=== PATIENT | female | born 1940 | race Caucasian/White ===

== ENCOUNTER 2017-11-09 21:46 | Emergency (ER) | payer MEDICARE, OTHER ==
[~2017-11-09] VITALS: Ht 152.4 cm; Wt 54.0 kg
--- NOTE | 2017-11-09 22:59 | Diagnostic Imaging Report ---
KNEE RIGHT THREE VIEWS Comparison: None Clinical history: Knee pain Findings: Chondrocalcinosis. Mild tricompartmental degenerative changes. Large 1.9 cm right lateral femoral condyle well-circumscribed lucency. No acute fractures seen. Impression: Favor large right lateral femoral condyle osteochondral defect over large subchondral cyst. Signed by: Dr Margaret Melendez MD on 11/09/2017 10:55 PM
[2017-11-09 23:27] VITALS: BP 154/92
== END 2017-11-09 23:28 | disposition home or self-care (01) ==
LOC: ER 21:46
DX: M25.561 Pain in right knee (principal); I10 Essential (primary) hypertension
CPT/HCPCS: 99282

== ENCOUNTER 2018-09-14 13:56 | Outpatient (RCR) | payer MEDICARE, OTHER | END 2018-09-15 | LOC: PT 13:56 | PROVIDERS: ATTEND Specialist | DX: M75.102 Unspecified rotator cuff tear or rupture of left shoulder, not specified as traumatic (principal); M75.101 Unspecified rotator cuff tear or rupture of right shoulder, not specified as traumatic; M25.512 Pain in left shoulder; M25.511 Pain in right shoulder; M62.81 Muscle weakness (generalized) | CPT/HCPCS: 97010 ×2; 97110 ×3; 97161; G0283; G8984; G8985 ==

== ENCOUNTER 2018-10-12 13:00 | Outpatient (RCR) | payer MEDICARE | END 2018-10-15 | LOC: PT 13:00 | PROVIDERS: ATTEND Specialist | DX: M16.11 Unilateral primary osteoarthritis, right hip (principal); M70.61 Trochanteric bursitis, right hip; M25.551 Pain in right hip; M62.81 Muscle weakness (generalized); R26.2 Difficulty in walking, not elsewhere classified | CPT/HCPCS: 97110 ×5; 97139; 97162; G8985; G8986 ==

== ENCOUNTER 2018-11-12 10:00 | Outpatient (RCR) | payer MEDICARE | END 2018-11-15 | LOC: PT 10:00 | PROVIDERS: ATTEND Specialist | DX: M16.11 Unilateral primary osteoarthritis, right hip (principal); M71.551 Other bursitis, not elsewhere classified, right hip | CPT/HCPCS: 97010; 97110 ×11; 97140 ×2; 97530; G8978; G8979 ==

== ENCOUNTER → 2020-03-22 | Outpatient (CLI) | payer MEDICARE ==
--- NOTE | 2020-03-22 14:18 | Diagnostic Imaging Report ---
Left knee MRI without contrast. History: Knee pain. Instability. Meniscus tear. Decreased range of motion Comparison: 11/09/2017. Technique: Multiplanar multi-sequence MRI of the knee without contrast. Findings: Medial compartment: Degeneration and fraying of the medial meniscus. No meniscal tear. Articular cartilage fraying and fissuring in the medial compartment. The medial collateral ligament complex is intact. Lateral compartment: Degeneration and fraying of the lateral meniscus. No meniscal tear. Articular cartilage fraying and deep fissuring most pronounced at the lateral femoral condyle with mild underlying bone marrow edema. The lateral collateral ligament complex is intact. Intercondylar notch: Scarring and attenuation of the anterior cruciate ligament intact fibers are seen. The posterior cruciate ligament is intact. Patellofemoral compartment: Articular cartilage fraying and fissuring in the patellofemoral compartment. Extensor mechanism: The quadriceps and patellar tendons are normal. Other findings: There is a joint effusion and synovitis. There is no acute fracture, subluxation or avascular necrosis. Small Thorne's cyst. IMPRESSION: Scarring and attenuation of the anterior cruciate ligament. Intact fibers are seen. 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 Joint effusion, synovitis and small Thorne's cyst. Signed by: Dr. Derek Bahena M.D. on 03/22/2020 2:15 PM
== END ==
LOC: MRI 10:29
PROVIDERS: ATTEND Specialist
DX: S83.242A Other tear of medial meniscus, current injury, left knee, initial encounter (principal)

== ENCOUNTER 2020-04-16 11:27 | Inpatient (IN) | payer MEDICARE, OTHER ==
[~2020-04-16] VITALS: Ht 152.4 cm; Wt 49.9 kg
--- OUTSIDE RECORDS SUMMARY | 2020-04-16 11:29 | XMS REPORT | Continuity of Care Document ---
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 COMPARISON: none TECHNIQUE: Grayscale and color images of both lobes of thyroid gland were performed with a linear high-frequency transducer. Static images are submitted for review. FINDINGS: There is mild heterogeneity in the echotexture of both lobes of thyroid gland. No discrete mass is visualized in either lobe of the thyroid gland. 4 mm complex lesion with tiny central calcification is noted in the midportion of right lobe of thyroid gland. The right lobe measures 2.6 x 1.0 x 1.2 cm and the left lobe measures 2.7 x 1.2 x 0.9 cm. ISTHMUS: Region of the isthmus is unremarkable. LYMPH NODES: No enlarged lymph nodes are evident adjacent to either lobe of thyroid gland. IMPRESSION: No significant sonographic abnormality is noted. For reference: Society of Radiologists in Ultrasound Consensus Conference Statement (2005): 1. Solitary nodule: --Microcalcifications: Strongly conside r US guided FNA if >= 1 cm. --Solid (or almost entirely solid): Str ongly consider US guided FNA if >= 1.5 cm. --Coarse calcifications: Strongly consi sadie US guided FNA if >= 1.5 cm. --Mixed solid and cystic (or almost enti rely cystic with solid mural component): Consider US guided FNA if >= 2 cm. --Substantial interval growth (in the ab sence of above findings): Consider US guided FNA. --Almost entirely cystic (in the absence of the above findings): US guided FNA probably unnecessary. 2. Multiple nodules: Consider US guide d FNA of 1 or more nodules, with selection prioritized on basis of criteria for solitary nodule. 3. Note: --FNA is likely unnecessary in diffusely enlarged gland with multiple nodules of similar US appearance without intervening parenchyma. --Presence of abnormal lymph nodes overr ides US features of thyroid nodule and should prompt US guided FNA or biopsy of lymph node and/or ipsilateral nodule. SL: [id number] 05/04/2017 [facility] Consultation Notes No Data Provided for This Section Discharge Summaries No Data Provided for This Section History and Physicals No Data Provided for This Section Vital Signs No Data Provided for This Section Encounters Location Location Details Encounter Type Encounter Number Reason For Visit Attending Provider ADM Date DC Date Status Source [facility] [id number] Theodore Aguilaya 05/04/2017 05/05/2017 [facility] Procedures No Data Provided for This Section Assessment and Plan No Data Provided for This Section Plan of Care No Data Provided for This Section Social History Social History Date Source No data available for this section 05/05/2017 [facility] Family History No Data Provided for This Section Advance Directives No Data Provided for This Section Functional Status No Data Provided for This Section
[2020-04-16 12:37] LABS: BASOPHILS % 0.3 % (0.0-1.0); EOSINOPHILS # (AUTO) 0.1 (0.0-0.4); EOSINOPHILS % 0.7 % (0.0-6.0); HEMATOCRIT 39.4 % (34.2-44.1); HEMOGLOBIN 13.2 g/dL (12.0-16.0); LYMPHOCYTES % 8.4 % (18.0-39.1); MEAN CORPUSCULAR HEMOGLOBIN 30.8 pg (28-32); MEAN CORPUSCULAR HGB CONC 33.5 g/dL (31-35); MEAN CORPUSCULAR VOLUME 91.8 fL (81-99); MONOCYTES # (AUTO) 0.6 (0.2-0.8); MONOCYTES % 5.1 % (4.4-11.3); NEUTROPHILS # (AUTO) 10.4 (2.1-6.9); NEUTROPHILS % 84.7 % (38.7-80.0); PLATELET COUNT 320 x10e3/uL (140-360); RED BLOOD COUNT 4.29 x10e6/uL (3.6-5.1); RED CELL DISTRIBUTION WIDTH 12.5 % (11.7-14.4)
[2020-04-16 13:09] LABS: ALANINE AMINOTRANSFERASE 45 IU/L (0-55); ALBUMIN 3.7 g/dL (3.5-5.0); ALKALINE PHOSPHATASE 280 IU/L (40-150); ANION GAP 15.5 mmol/L (8-16); BLOOD UREA NITROGEN 9 mg/dL (7-26); BUN/CREATININE RATIO 13 (6-25); CALCIUM 10.2 mg/dL (8.4-10.2); CARBON DIOXIDE 29 mmol/L (22-29); CHLORIDE 96 mmol/L (98-107); CREATINE KINASE 71 IU/L (29-168); CREATININE, SERUM 0.71 mg/dL (0.57-1.11); EST GLOMERULAR FILTRATION RATE > 60 ML/MIN (60-); GLUCOSE 161 mg/dL (74-118); POTASSIUM 3.5 mmol/L (3.5-5.1); SODIUM 137 mmol/L (136-145)
[2020-04-16] MEDS ORDERED: CARVEDILOL 12.5 MG TAB PO ONE (14:45)
[2020-04-16 15:21] LABS: BILIRUBIN,URINE NEGATIVE (NEGATIVE); CLARITY,URINE SL CLOUDY (CLEAR); COLOR,URINE YELLOW (YELLOW); KETONES,URINE TRACE (NEGATIVE); LEUKOCYTE ESTERASE ,URINE TRACE (NEGATIVE); NITRITE,URINE NEGATIVE (NEGATIVE); PROTEIN,URINE DIPSTICK TRACE (NEGATIVE); URINE UROBILINOGEN 0.2 mg/dL (0.2 - 1)
[2020-04-16 15:39] LABS: EPITHELIAL CELLS,URINE FEW /LPF; RENAL EPITHELIAL CELLS,URINE RARE; TRANSITIONAL EPI CELLS,URINE RARE; WBC,URINE (MAN) 0-5 /HPF (0-5)
--- NOTE | 2020-04-16 15:53 | Diagnostic Imaging Report ---
CT of the abdomen and pelvis, with contrast. History: Abdominal pain. Comparison: None available. Technique: Multidetector CT scanning of the abdomen and pelvis was performed from the level of the lung bases to the inferior pubic rami after intravenous administration of contrast. Coronal and sagittal multiplanar reformations were obtained. RADIATION DOSE: Total DLP: 165.84 mGy*cm Dose modulation, iterative reconstruction, and/or weight based adjustment of the mA/kV was utilized to reduce the radiation dose to as low as reasonably achievable. FINDINGS: The visualized lungs are grossly unremarkable. The imaged portion of the heart demonstrates no significant abnormalities. The liver is normal in size and contains innumerable hypodense masses. A mass within the left hepatic lobe measures 1.6 x 1.8 cm (axial image 26). The stomach, spleen, and bilateral adrenal glands are unremarkable. Although this examination was not performed for detailed evaluation of the pancreas, there is soft tissue fullness noted at the level of the pancreatic head without a discrete mass. The remaining pancreas is atrophic with the pancreatic duct measuring up to 8 mm in caliber. The kidneys are normal in size and location and enhance symmetrically. A subcentimeter hypodensity is identified within the superior pole the right kidney. There is no evidence for solid renal mass or hydronephrosis. No ureteral stone or dilatation is appreciated. The partially distended urinary bladder demonstrates no significant abnormalities. The uterus is surgically absent. No abnormal adnexal masses are identified. The abdominal aorta is normal in course and caliber with atherosclerotic calcifications within its course and branch vessels. The IVC is normal in caliber. Please note evaluation the bowel is limited without the use of enteric contrast material. The visualized loops of small and large bowel demonstrate no evidence of obstruction or inflammation. Scattered diverticula are noted within the sigmoid colon without evidence for acute diverticulitis. There is no ascites or intraperitoneal free air. No abnormally enlarged lymph nodes are identified within the abdomen or pelvis by CT size criteria. There are mild compression deformities involving the T12 and L1 vertebral bodies. There are multilevel degenerative changes of the thoracolumbar spine with mild anterolisthesis of L3 on L4. No destructive osseous lesion is identified. The extraperitoneal soft tissues are unremarkable. IMPRESSION: 1. Multiple hypodense masses identified within the liver concerning for metastatic disease. 2. Although this examination was not performed for detailed evaluation of the pancreas, there is soft tissue fullness noted at the level of the pancreatic head with atrophic changes and ductal dilatation noted within the pancreatic body and tail. An underlying pancreatic lesion is possible. Further evaluation could be performed with ERCP if clinically indicated. 3. Multilevel degenerative changes of the thoracolumbar spine with mild, age indeterminate compression fractures of the T12 and L1 vertebral bodies. Signed by: Dr. Lamonte Whitaker MD on 04/16/2020 3:49 PM
[2020-04-16] MEDS ORDERED: ONDANSETRON HCL INJ 2MG/ML 2ML 2 MG/ML VIAL IV PRN ×2 (16:30→23:00)
--- OUTSIDE RECORDS SUMMARY | 2020-04-16 16:36 | XMS REPORT | Clinical Summary ---
Author Author [facility] [employer] Organization [facility] [employer] Address Unknown Phone Unavailable Care Team Providers Care Airport Ramp Supervisor Name Role Phone Anup Sanchez MD PCP Allergies Not on File Medications Not on file Active Problems Not on file Encounters Care Team Description Date Type Specialty Darwin Poole MD Displaced comminuted fracture of right p atella, initial encounter for closed fracture (Primary Dx) 10/18/2019 Transcribe Physical Therapy Orders Anup Sanchez MD Lump or mass in breast 06/14/2019 Hospital Radiology Encounter nAup Sanchez MD Lump or mass in breast 06/14/2019 Hospital Radiology Encounter Anup Sanchez MD Lump or mass in breast (Primary Dx) 06/02/2019 Transcribe Access Orders after 04/16/2019 Social History Date Tobacco Use Types Packs/Day Years Used Never Assessed Sex Assigned at Date Recorded Not on file Industry Job Start Date Occupation Not on file Not on file Not on file Travel End Travel History Travel Start No recent travel history available. Last Filed Vital Signs Not on file Plan of Treatment Health Maintenance Due Date Last Done Comments SHINGLES VACCINES (#1) 1988 65+ PNEUMOCOCCAL VACCINE 2003 (1 of 2 - PCV13) INFLUENZA VACCINE 06/16/2020 Procedures Comments Procedure Name Priority Date/Time Associated Diag nosis US BREAST COMPLETE Routine 06/14/2019 Lump or mas s in breast BILATERAL 3:07 PM CDT MAMMO BREAST DIAGNOSTIC Routine 06/14/2019 Lump o r mass in breast TOMOSYNTHESIS BILATERAL 2:22 PM CDT after 04/16/2019 Results * US Breast Complete Bilateral (06/14/2019 3:07 PM CDT) Specimen Narrative Performed At PROCEDURE: MAMMO BREAST DIAGNOSTIC TOMOSYNTHESIS BILA TERAL, US BREAST COMPLETE [facility] BILATERAL Bilateral real-time whole breast sonogr aphy included all four quadrants and the retroareolar regions under close superv ision by the radiologist. Computer aided detection with tomosynth esis was utilized for the interpretation. HISTORY: 79-year-old female presentin for additional evaluation for focal left breast pain at the 6:00 location. Although the position order reports a breast nodule, the patient denies a pal pable concern. The patient reports no right breast complaints. COMPARISON: 06/18/2018-10/24/2014 DENSITY: The breast tissue is predomina ntly fatty. FINDINGS: MAMMOGRAM: The asymmetry in the right m edial breast at middle depth identified on CC view completely effaces on right CC spot compression magnification view and does not persist on right CC medial ly or laterally rolled views, most compatible with overlapping breast tissue. Otherwise, n o new significant masses, calcifications, or other findings are seen in either br east. ULTRASOUND: Bilateral whole breast sono graphy demonstrates no suspicious sonographic abnormality. Special attent ion to the area of focal left breast pain at the 6:00 location 4 cm from the nipp le demonstrates no definite sonographic abnormality. IMPRESSION: No mammographic or sonogr aphic evidence of malignancy in either breast. RECOMMENDATION: Correlation with physic al exam and annual mammography as per ACR guidelines. Recommend clinical follow-u p for focal left breast pain. Results and recommendations were discussed with the patient at the time of the ultrasound exam. BI-RADS 1: NEGATIVE This facility is accredited by [employer] for Mammography. A negative x-ray report should not janell y biopsy if a dominant or clinically suspicious mass is present. Not all c ancers are identified by x-ray. [id number] Performing Organization Address City/State/Zipcode Ph one Number [facility] [address] [place] [address] * Mammo Breast Diagnostic Tomosynthesis Bilateral (06/14/2019 2:22 PM CDT) Specimen Narrative Performed At PROCEDURE: MAMMO BREAST DIAGNOSTIC TOMOSYNTHESIS BILA TERAL, US BREAST COMPLETE [facility] BILATERAL Bilateral real-time whole breast sonogr aphy included all four quadrants and the retroareolar regions under close superv ision by the radiologist. Computer aided detection with tomosynth esis was utilized for the interpretation. HISTORY: 79-year-old female presentin g for additional evaluation for focal left breast pain at the 6:00 location. Although the position order reports a breast nodule, the patient denies a pal pable concern. The patient reports no right breast complaints. COMPARISON: 06/18/2018-10/24/2014 DENSITY: The breast tissue is predomina ntly fatty. FINDINGS: MAMMOGRAM: The asymmetry in the right m edial breast at middle depth identified on CC view completely effaces on right CC spot compression magnification view and does not persist on right CC medial ly or laterally rolled views, most compatible with overlapping breast tissue. Otherwise, n o new significant masses, calcifications, or other findings are seen in either br east. ULTRASOUND: Bilateral whole breast sono graphy demonstrates no suspicious sonographic abnormality. Special attent ion to the area of focal left breast pain at the 6:00 location 4 cm from the nipp le demonstrates no definite sonographic abnormality. IMPRESSION: No mammographic or sonogr aphic evidence of malignancy in either breast. RECOMMENDATION: Correlation with physic al exam and annual mammography as per ACR guidelines. Recommend clinical follow-u p for focal left breast pain. Results and recommendations were discussed with the patient at the time of the ultrasound exam. BI-RADS 1: NEGATIVE This facility is accredited by [employer] for Mammography. A negative x-ray report should not janell y biopsy if a dominant or clinically suspicious mass is present. Not all c ancers are identified by x-ray. 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
--- OUTSIDE RECORDS SUMMARY | 2020-04-16 16:36 | XMS REPORT ---
Author Author [facility] Organization [facility] Address [address] [place] [address] Phone Unavailable Care Team Providers Care Inspector Watch Assembly Name Role Phone NONSTAFF PCP Unavailable Alexandrea PATEL Attphys Unavailable Alejo LINARES Attphys Unavailable Alejo Linares MD. Darwin Attphys Anup Sanchez MD Attphys [place] ABDI Attphys Unavailable Theodore Vides Attphys Payers Payer Name Policy Type Policy Number Effective Date Expiration Date S nahid UHC MEDICAREUHC MEDICARE HMO/[id number]-[id number] xxxxxxxxx 2017 00:00:00 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 Active 04/29/2017 [facility] Diagnosis Active 2017-04-29 00:00:00 2017-05-04 10:41:00 [facility] NONTOXIC SINGLE THYROID NODULE NONTOXIC SINGLE THYROID NODULE Active [facility] Diagnosis Active 2017-05-04 10:41 :00 [facility] Allergies, Adverse Reactions, Alerts Allergy Name Allergy Type Status Severity Reaction(s) Onset Date Inacti ve Date Treating Clinician Comments Source Niacin Allergy to Substance Active ITCHING, RASH 2017-11-09 00:00: 00 [facility] Codeine Allergy to Substance Active [facility] 2017-11-09 00: 00:00 [facility] Hydrocodone Allergy to Substance Active [facility] 2017-10 00:00:00 [facility] Social History Social Habit Start Date Stop Date Quantity Comments Source Sex Assigned At Isrrael Medeiros Social History 2017-05-05 04:59:00 2017-05-05 04:59:00 [facility] Medications This patient has no known medications. Procedures Procedure Date / Time Performed Performing Clinician Juan SINHA BREAST COMPLETE BILATERAL 2019-06-14 15:07:19 System, Provide r Not In [facility] MAMMO BREAST DIAGNOSTIC TOMOSYNTHESIS BILATERAL 2019-06-14 1 4:22:15 System, Provider Not In [facility] Computed tomography of brain without radiopaque contrast 201 07-20-02 00:00:00 SHAINA CRONIN [facility] Computed tomography of cervical spine without contrast 02-15 00:00:00 SHAINA CRONIN [facility] CT maxillofacial area wo contrast 2019-02-15 00:00:00 ERWIN CRONIN [facility] Plan of Care Planned Activity Planned Date Details Comments Source Future Scheduled Test 2020-06-16 00:00:00 INFLUENZA VACCINE [code = INFLUENZA VACCINE] [facility] Future Scheduled Test 2003 00:00:00 65+ PNEUMOCOCCAL V ACCINE (1 of 2 - PCV13) [code = 65+ PNEUMOCOCCAL VACCINE (1 of 2 - PCV13)] [facility] Future Scheduled Test 1988 00:00:00 SHINGLES VACCINES (#1) [code = SHINGLES VACCINES (#1)] [facility] Encounters Start Date/Time End Date/Time Encounter Type Admission Type [facility] Care Department Encounter ID Source 2019-02-15 19:22:00 2019-02-15 22:05:00 Departed Emergency Room 1 MEHRDADSHAINA [facility] [id number] [facility] 2018-10-18 14:54:00 2018-11-15 23:59:00 Discharged Recurring [facility] [id number] [facility] 2018-09-16 13:58:00 2018-10-15 23:59:00 Discharged Recurring [facility] [id number] [facility] 2018-09-07 13:54:00 2018-09-15 23:59:00 Discharged Recurring [facility] [id number] [facility] 2017-05-04 15:33:00 2017-05-05 04:59:00 Outpatient [facility] [id number] [facility] 2017-05-04 10:33:00 2017-05-04 23:59:00 Outpatient Theodore Vides [facility] [id number] Results Test Description Test Time Test Comments Results Result Comments Source CT ABDOMEN/PELVIS W 2020-04-16 15:38:00 [facility] [address] [address] Patient Name: STAN DASH MR #: [id number] : 1940 Age/Sex: 80/F Req #: [id number] Adm Physician: Ordered by: SHAINA PATEL DO Report #: [id number] Location: ER Room/Bed: Procedure: CT/CT ABDOMEN/PELVIS W Exam Date: 04/16/20 Exam Time: 1525 REPORT STATUS: Signed CT of the abdomen and pelvis, with contrast. History: Abdominal pain. Comparison: None available. Technique: Multidetector CT scanning of the abdomen and pelvis was performed from the level of the lung bases to the inferior pubic rami after intravenous administration of contrast. Coronal and sagittal multiplanar reformations were obtained. RADIATION DOSE: Total DLP: 165.84 mGy*cm Dose modulation, iterative reconstruction, and/or weight based adjustment of the mA/kV was utilized to reduce the radiation dose to as low as reasonably achievable. FINDINGS: The visualized lungs are grossly unremarkable. The imaged portion of the heart demonstrates no significant abnormalities. The liver is normal in size and contains innumerable hypodense masses. A mass within the left hepatic lobe measures 1.6 x 1.8 cm (axial image 26). The stomach, spleen, and bilateral adrenal glands are unremarkable. Although this examination was not performed for detailed evaluation of the pancreas, there is soft tissue fullness noted at the level of the pancreatic head without a discrete mass. The remaining pancreas is atrophic with the pancreatic duct measuring up to 8 mm in caliber. The kidneys are normal in size and location and enhance symmetrically. A subcentimeter hypodensity is identified within the superior pole the right kidney. There is no evidence for solid renal mass or hydronephrosis. No ureteral stone or dilatation is appreciated. The partially distended urinary bladder demonstrates no significant abnormalities. The uterus is surgically absent. No abnormal adnexal masses are identified. The abdominal aorta is normal in course and caliber with atherosclerotic calcifications within its course and branch vessels. The IVC is normal in caliber. Please note evaluation the bowel is limited without the use of enteric contrast material. The visualized loops of small and large bowel demonstrate no evidence of obstruction or inflammation. Scattered diverticula are noted within the sigmoid colon without evidence for acute diverticulitis. There is no ascites or intraperitoneal free air. No abnormally enlarged lymph nodes are identified within the abdomen or pelvis by CT size criteria. There are mild compression deformities involving the T12 and L1 vertebral bodies. There are multilevel degenerative changes of the thoracolumbar spine with mild anterolisthesis of L3 on L4. No destructive osseous lesion is identified. The extraperitoneal soft tissues are unremarkable. IMPRESSION: 1. Multiple hypodense masses identified within the liver concerning for metastatic disease. 2. Although this examination was not performed for detailed evaluation of the pancreas, there is soft tissue fullness noted at the level of the pancreatic head with atrophic changes and ductal dilatation noted within the pancreatic body and tail. An underlying pancreatic lesion is possible. Further evaluation could be performed with ERCP if clinically indicated. 3. Multilevel degenerative changes of the thoracolumbar spine with mild, age indeterminate compression fractures of the T12 and L1 vertebral bodies. Signed by: Dr. Lamonte Whitaker MD on 04/16/2020 3:49 PM Dictated By: LAMONTE WHITAKER MD 48 Transcribed By: KELLEY on 04/16/201548 COPY TO: SHAINA PATEL DO MRI KNEE LEFT WO 2020-03-22 14:12:00 [address] [place] [address] Patient Name: STAN DASH MR #: [id number] : 1940 Age/Sex: 80/F Req #: [id number] Adm Physician: Ordered by: DARWIN LINARES MD Report #: [id number] Location: MRI Room/Bed: Procedure: [id number] MRI/MRI KNEE LEFT WO Exam Date: Exam Time: REPORT STATUS: Signed Left knee MRI without contrast. History: Knee pain. Instability. Meniscus tear. Decreased range of motion Comparison: 11/09/2017. Technique: Multiplanar multi-sequence MRI of the knee without contrast. Findings: Medial compartment: Degeneration and fraying of the medial meniscus. No meniscal tear. Articular cartilage fraying and fissuring in the medial compartment. The medial collateral ligament complex is intact. Lateral compartment: Degeneration and fraying of the lateral meniscus. No meniscal tear. Articular cartilage fraying and deep fissuring most pronounced at the lateral femoral condyle with mild underlying bone marrow edema. The lateral collateral ligament complex is intact. Intercondylar notch: Scarring and attenuation of the anterior cruciate ligament intact fibers are seen. The posterior cruciate ligament is intact. Patellofemoral compartment: Articular cartilage fraying and fissuring in the patellofemoral compartment. Extensor mechanism: The quadriceps and patellar tendons are normal. Other findings: There is a joint effusion and synovitis. There is no acute fracture, subluxation or avascular necrosis. Small Thorne's cyst. IMPRESSION: Scarring and attenuation of the anterior cruciate ligament. Intact fibers are seen. 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 Joint effusion, synovitis and small Thorne's cyst. Signed by: Dr. Kellie Bahena M.D. on 03/22/2020 2:15 PM Dictated By: KELLIE BAHENA MD, MD 14 Transcribed By: KELLEY on 03/22/201414 COPY TO: DARWIN LINARES MD US Breast Complete Bilateral 2019-06-14 15:16:39 PROCEDURE: MAMMO BREAST DIAGNOSTIC TOMOSYNTHESIS BILATERAL, US BREAST COMPLETE BILATERALBilateral real- time whole breast sonography included all four quadrants and the retroareolar regions under close supervision by the radiologist. Computer aided detection with tomosynthesis was utilized for the interpretation. HISTORY: 79-year-old female presenting for additional evaluation for focal left breast pain at the 6:00 location. Although the position order reports a breast nodule, the patient denies a palpable concern. The patient reports no right breast complaints. COMPARISON: 06/18/2018-10/24/2014 DENSITY: The breast tissue is predominantly fatty. FINDINGS: MAMMOGRAM: The asymmetry in the right medial breast at middle depth identified on CC view completely effaces on right CC spot compression magnification view and does not persist on right CC medially or laterally rolled views, most compatible with overlapping breast tissue. Otherwise, no new significant masses, calcifications, or other findings are seen in either breast. ULTRASOUND: Bilateral whole breast sonography demonstrates no suspicious sonographic abnormality. Special attention to the area of focal left breast pain at the 6:00 location 4 cm from the nipple demonstrates no definite sonographic abnormality. IMPRESSION: No mammographic or sonographic evidence of malignancy in either breast. RECOMMENDATION: Correlation with physical exam and annual mammography as per ACR guidelines. Recommend clinical follow-up for focal left breast pain. Results and recommendations were discussed with the patient at the time of the ultrasound exam. BI-RADS 1: NEGATIVE This facility is accredited by [employer] for Mammography. A negative x-ray report should not delay biopsy if a dominant or clinically suspicious mass is present. Not all cancers are identified by x-ray. DWS01 [facility] Breast Diagnostic Tomosynthesis Bilateral 2019-06-14 15:16 :39 PROCEDURE: MAMMO BREAST DIAGNOSTIC TOMOSYNTHESIS BILATERAL, US BREAST COMPLETE BILATERALBilateral real-time whole breast sonography included all four quadrants and the retroareolar regions under close supervision by the radiologist. Computer aided detection with tomosynthesis was utilized for the interpretation. HISTORY: 79-year-old female presenting for additional evaluation for focal left breast pain at the 6:00 location. Although the position order reports a breast nodule, the patient denies a palpable concern. The patient reports no right breast complaints. COMPARISON: 06/18/2018-10/24/2014 DENSITY: The breast tissue is predominantly fatty. FINDINGS: MAMMOGRAM: The asymmetry in the right medial breast at middle depth identified on CC view completely effaces on right CC spot compression magnification view and does not persist on right CC medially or laterally rolled views, most compatible with overlapping breast tissue. Otherwise, no new significant masses, calcifications, or other findings are seen in either breast. ULTRASOUND: Bilateral whole breast sonography demonstrates no suspicious sonographic abnormality. Special attention to the area of focal left breast pain at the 6:00 location 4 cm from the nipple demonstrates no definite sonographic abnormality. IMPRESSION: No mammographic or sonographic evidence of malignancy in either breast. RECOMMENDATION: Correlation with physical exam and annual mammography as per ACR guidelines. Recommend clinical follow-up for focal left breast pain. Results and recommendations were discussed with the patient at the time of the ultrasound exam. BI-RADS 1: NEGATIVE This facility is accredited by [employer] for Mammography. A negative x-ray report should not delay biopsy if a dominant or clinically suspicious mass is present. Not all cancers are identified by x-ray. DWS01 [facility] CT MAXIO FAC/PARANAS WO 2019-02-15 21:01:00 [place] [address] Patient Name: STAN DASH MR #: [id number] : 1940 Age/Sex: 79/F Req #: [id number] Adm Physician: Ordered by: SHAINA CRONIN MD Report #: [id number] Location: ER Room/Bed: Procedure: [id number] CT/CT MAXIO FAC/PARANAS WO Exam Date: 02/15/19 Exam Time: 2017 REPORT STATUS: Signed History:Status post fall. Comparison studies: None Technique: Axial images were obtained through the maxillofacial region. Coronal and sagittal images reconstructed from the axial data. Dose modulation, iterative reconstruction, and/or weight based adjustment of the mA/kV was utilized to reduce the radiation dose to as low as reasonably achievable. Intravenous contrast: None Findings: Soft tissues: Moderate subcutaneous soft tissue edema/hematoma in the mid frontal scalp that extends inferiorly to the fore head, supraorbital and perinasal region. No soft tissue emphysema or radiopaque foreign body. Bones: Acute mildly displaced fracture of right nasal bone Orbits: Globes: Intact Extra or intraconal abnormalities: None. Paranasal sinuses: Mild mucosal thickening in left maxillary sinus and moderate mucosal thickening in right sphenoid sinus. IMPRESSION: 1. Moderate soft tissue edema/hematoma in mid frontal scalp, forehead, supraorbital and perinasal region. 2. Acute mildly displaced fracture of right nasal bone. Signed by: Dr. Tiesha Castle M.D. on 02/15/2019 9:06 PM Dictated By: TIESHA CASTLE MD 05 Transcribed By: KELLEY on 02/15/192105 COPY TO: SHAINA CRONIN MD CT CERVICAL SPINE WO 2019-02-15 20:53:00 [address] [place] [address] Patient Name: STAN DASH MR #: [id number] : 1940 Age/Sex: 79/F Req #: [id number] Adm Physician: Ordered by: SHAINA CRONIN MD Report #: [id number] Location: Room/Bed: Procedure: [id number] CT/CT CERVICAL SPINE WO Exam Date: 02/15/19 Exam Time: 2017 REPORT STATUS: Signed History: Status post fall. Comparison studies: None Technique: Axial images were obtained through the cervical region.. Coronal and sagittal images reconstructed from the axial data. Dose modulation, iterative reconstruction, and/or weight based adjustment of the mA/kV was utilized to reduce the radiation dose to as low as reasonably achievable. Intravenous contrast: None Findings: Fractures: None. Soft tissue injuries: None. Atlantoaxial articulation: Intact. Alignment: Reversal of normal cervical lordosis is either positional or due to muscle spasm. No scoliosis. 2 mm grade 1 retrolisthesis at C4-C5 and C5-C6. Cervicomedullary junction: No abnormalities. The foramen magnum is patent. Soft tissues: Incidental sclerosis of left aretynoid cartilage. Vertebrae: Diffuse osseous demineralization. No fractures, infection or neoplasm. Degenerative changes: C2-C3: Mild degenerative disc disease. Advanced bilateral facet arthrosis without significant foraminal stenosis. C3- C4: Mild degenerative disc disease. Posterior disc osteophyte complex results in mild canal stenosis. Moderate left foraminal stenosis due to facet and uncovertebral arthrosis. C4-C5: Severe degenerative disc disease. Posterior disc osteophyte complex results in mild canal stenosis. Bilateral mild foraminal stenosis due to facet and uncovertebral arthrosis. C5-C6: Severe degenerative disc disease. Posterior disc osteophyte complex results in mild canal stenosis. Mild right and moderate left foraminal stenosis due to facet and uncovertebral arthrosis. C6-C7: Mild degenerative disc disease. Moderate right and mild left foraminal stenosis due to facet and uncovertebral arthrosis.. IMPRESSION: 1. No acute cervical spine fracture. Reversal of normal cervical lordosis is either positional or due to muscle spasm. 2. Ligament, spinal cord and or vascular abnormalities cannot be excluded on the basis of this examination. 3. Cervical spondylosis as detailed above. Signed by: Dr. Tiesha Castle M.D. on 02/15/2019 9:01 PM Dictated By: TIESHA CASTLE MD 00 Transcribed By: KELLEY on 02/15/192100 COPY TO: SHAINA CRONIN MD CT BRAIN WO 2019-02-15 20:47:00 [address] [place] [address] Patient Name: STAN DASH MR #: [id number] : 1940 Age/Sex: 79/F Req #: [id number] Adm Physician: Ordered by: SHAINA CRONIN MD Report #: [id number] Location: ER Room/Bed: Procedure: [id number] CT/CT BRAIN WO Exam Date: 02/15/19 Exam Time: 2017 REPORT STATUS: Signed EXAMINATION: Head CT without contrast. HISTORY:Status post fall. COMPARISON:None. TECHNIQUE: Multidetector axial images were obtained from the foramen magnum to the vertex without contrast. The images were reconstructed using brain and bone algorithms. Thin section brain images were reformatted into coronal and sagittal planes. Dose modulation, iterative reconstruction, and/or weight based adjustment of the mA/kV was utilized to reduce the radiation dose to as low as reasonably achievable. Intravenous contrast: None IMAGE QUALITY: Acceptable. FINDINGS: Skull/scalp: Moderate mid frontal scalp and forehead soft tissue edema/hematoma. No soft tissue emphysema or radiopaque foreign body. No acute depressed or displaced calvarial fracture. Parenchyma: Nonspecific bilateral frontoparietal patchy white matter hypodensity are likely related to small vessel ischemic changes. Focal hypodensity in the anterior limb of right internal capsule represents age indeterminate lacunar infarct. No acute hemorrhage, mass or acute major vascular territorial infarct. Arteries: No density suggestive of thrombosis. Atherosclerotic calcification in bilateral carotid siphon. Dural sinuses: No abnormal density suggestive of thrombosis. Ventricles: No hydrocephalus or displacement. Extra- axial spaces: No abnormal density. Brain volume: Generalized age-related cerebral volume loss. Craniocervical junction: No mass, Chiari malformation, or basilar invagination. Sella: No mass. Paranasal/mastoid sinuses: Mild mucosal thickening in right sphenoid sinus. IMPRESSION: 1. Moderate mid frontal scalp and forehead soft tissue edema/hematoma. No acute calvarial fracture. 2. No acute posttraumatic intracranial abnormality. 3. 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 4. Mild supratentorial white matter microvascular ischemic changes. Signed by: Dr. Tiesha Castle M.D. on 02/15/2019 8:53 PM Dictated By: TIESHA CASTLE MD 52 Transcribed By: KELLEY on 02/15/192052 COPY TO: SHAINA CRONIN MD KNEE RIGHT THREE VIEWS [place] [address] Patient Name: STAN DASH MR #: [id number] : 1940 Age/Sex: 77/F Req #: [id number] Adm Physician: Ordered by: CASSIDY ABDI MD Report #: [id number] Location: ER Room/Bed: Procedure: [id number] DX/KNEE RIGHT THREE VIEWS Exam Date: 11/09/17 Exam Time: 2214 REPORT STATUS: Signed KNEE RIGHT THREE VIEWS Comparison: None Clinical history: Knee pain Findings: Chondrocalcinosis. Mild tricompartmental degenerative changes. Large 1.9 cm right lateral femoral condyle well- circumscribed lucency. No acute fractures seen. Impression: Favor large right lateral femoral condyle osteochondral defect over large subchondral cyst. Signed by: Dr Sivakumar Orozco MD on 11/09/2017 10:55 PM Dictated By: SIVAKUMAR OROZCO MD 54 Transcribed By: KELLEY on 11/09/172254 COPY TO: CASSIDY ABDI MD
--- OUTSIDE RECORDS SUMMARY | 2020-04-16 16:36 | XMS REPORT | Continuity of Care Document ---
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 SL: [id number] 05/04/2017 [facility] Consultation Notes No Data Provided for This Section Discharge Summaries No Data Provided for This Section History and Physicals No Data Provided for This Section Vital Signs No Data Provided for This Section Encounters Location Location Details Encounter Type Encounter Number Reason For Visit Attending Provider ADM Date DC Date Status Source [facility] [id number] Theodore Aguilaya 05/04/2017 05/05/2017 [facility] Procedures No Data Provided for This Section Assessment and Plan No Data Provided for This Section Plan of Care No Data Provided for This Section Social History Social History Date Source No data available for this section 05/05/2017 [facility] Family History No Data Provided for This Section Advance Directives No Data Provided for This Section Functional Status No Data Provided for This Section
[2020-04-16] MEDS: MORPHINE SULFATE INJ 4 MG/ML INJ 1ML IV PRN ×2 (17:19→21:33)
--- NOTE | 2020-04-16 18:05 | Emergency Department Note ---
History of Present Illnes History of Present Illness Chief Complaint: Abdominal Complaints History of Present Illness This is a 80 year old female with 3 days of abdominal pain. Chief Complaint Comment PATIENT IN FROM HOME WITH COMPLAINTS OF ABDOMINAL PAIN X 3-4 MONTHS; STATES HAD AN EGD 04/03/2020, BUT HAS NOT FOLLOWED UP YET. PATIENT DENIES NAUSEA AND VOMITING, BUT IS NOT EATING OR DRINKING WELL IN THE LAST 2 WEEKS. PATIENT ALERT AND ORIENTED, APPEARS IN NO DISTRESS, RESP EVEN AND NONLABORED Historian: Patient Arrival Mode: Car Onset (how long ago): month(s) Radiation: non-radiation Onset quality: gradual Duration (how long): week(s) Timing of current episode: constant Progression: worsening Relieving factors: none Exacerbating factors: none Associated symptoms: loss of appetite Past Medical/Family History Physician Review I have reviewed the patient's past medical and family history. Any updates have been documented here. Past Medical History Recent Fever: No Clinical Suspicion of Infectio: No New/Unexplained Change in Ment: No Past Medical History: Hypertension, Hyperlipedemia Other Medical History: HIATAL HERNIA Past Surgical History: Cholecysctectomy, Appendectomy, Hysterectomy Other Surgery: ARTIFICAL ANKLE( LEFT ) SEVERAL REVISIONS EGD 04/03/2020 Social History Smoking Cessation: Never Smoker Counseling Performed: No Alcohol Use: None Any Illegal Drug Use: No TB Exposure/Symptoms: No Physically hurt or threatened: No Family History Family history of heart diseas: No Other Last Tetanus: UNKNOWN Any Pre-Existing Lines (PICC,: No Is patient up to date on immun: Yes Last Flu: ood Last Pneumovax: utd Review of Systems Review of Systems Constitutional: no symptoms EENTM: no symptoms Cardiovascular: no symptoms Respiratory: no symptoms Gastrointestinal: as per HPI, abdominal pain, nausea Genitourinary: no symptoms Musculoskeletal: no symptoms Neurological: no symptoms Psychological: no symptoms Endocrine: no symptoms Hematological/Lymphatic: no symptoms Review of other systems All other systems reviewed and negative. Physical Exam Related Data Allergies: Coded Allergies: codeine (Verified Allergy, Unknown, HALLUNCINATIONS, 11/09/17) hydrocodone (Verified Allergy, Unknown, HALLUNCINATIONS, 11/09/17) niacin (Verified Allergy, Unknown, ITCHING, RASH, 11/09/17) Triage Vital Signs Vital Signs Date Time Temp Pulse Resp B/P (MAP) Pulse Ox O2 Delivery O2 Flow Rate FiO2 04/16/20 11:45 96.9 72 18 189/84 100 Vital signs reviewed: Yes Physical Exam CONSTITUTIONAL Constitutional: well-developed, well-nourished, cachectic HENT HENT: normocephalic, atraumatic, oropharynx clear/moist, nose normal HENT L/R: left ext ear normal, right ext ear normal EYES Eyes: PERRL, conjunctivae normal NECK Neck: ROM normal PULMONARY Pulmonary: effort normal, breath sounds normal CARDIOVASCULAR Cardiovascular: regular rhythm, heart sounds normal, capillary refill normal, normal rate GASTROINTESTINAL Abdominal: soft, tender GENITOURINARY Genitourinary: exam deferred SKIN Skin: warm, dry MUSCULOSKELETAL Musculoskeletal: ROM normal NEUROLOGICAL Neurological: alert, oriented x 3, no gross motor or sensory deficits PSYCHOLOGICAL Psychological: mood/affect normal, judgement normal Results Laboratory Result Diagram: 04/16/20 1223 04/16/20 1223 Laboratory Laboratory Tests Test 04/16/20 14:39 04/16/20 12:23 Urine Color Yellow (YELLOW) Urine Clarity Sl cloudy (CLEAR) Urine pH 7 (5 - 7) Urine Specific Norman 1.020 (1.010-1.025) Urine Protein Trace (NEGATIVE) Urine Glucose (UA) Negative (NEGATIVE) Urine Ketones Trace (NEGATIVE) Urine Blood Negative (NEGATIVE) Urine Nitrite Negative (NEGATIVE) Urine Bilirubin Negative (NEGATIVE) Urine Urobilinogen 0.2 mg/dL (0.2 - 1) Urine Leukocyte Esterase Trace (NEGATIVE) Urine RBC None /HPF (0-5) Urine WBC 0-5 /HPF (0-5) Urine Epithelial Cells Few /LPF (NONE) Urine Transitional Epithelial Cells Rare (NONE) Urine Renal Epithelial Cells Rare (NONE) Urine Bacteria None /HPF (NONE) White Blood Count 12.26 x10e3/uL (4.8-10.8) Red Blood Count 4.29 x10e6/uL (3.6-5.1) Hemoglobin 13.2 g/dL (12.0-16.0) Hematocrit 39.4 % (34.2-44.1) Mean Corpuscular Volume 91.8 fL (81-99) Mean Corpuscular Hemoglobin 30.8 pg (28-32) Mean Corpuscular Hemoglobin Concent 33.5 g/dL (31-35) Red Cell Distribution Width 12.5 % (11.7-14.4) Platelet Count 320 x10e3/uL (140-360) Neutrophils (%) (Auto) 84.7 % (38.7-80.0) Lymphocytes (%) (Auto) 8.4 % (18.0-39.1) Monocytes (%) (Auto) 5.1 % (4.4-11.3) Eosinophils (%) (Auto) 0.7 % (0.0-6.0) Basophils (%) (Auto) 0.3 % (0.0-1.0) Neutrophils # (Auto) 10.4 (2.1-6.9) Lymphocytes # (Auto) 1.0 (1.0-3.2) Monocytes # (Auto) 0.6 (0.2-0.8) Eosinophils # (Auto) 0.1 (0.0-0.4) Basophils # (Auto) 0.0 (0.0-0.1) Absolute Immature Granulocyte (auto 0.10 x10e3/uL (0-0.1) Sodium Level 137 mmol/L (136-145) Potassium Level 3.5 mmol/L (3.5-5.1) Chloride Level 96 mmol/L (98-107) Carbon Dioxide Level 29 mmol/L (22-29) Anion Gap 15.5 mmol/L (8-16) Blood Urea Nitrogen 9 mg/dL (7-26) Creatinine 0.71 mg/dL (0.57-1.11) Estimat Glomerular Filtration Rate > 60 ML/MIN (60-) BUN/Creatinine Ratio 13 (6-25) Glucose Level 161 mg/dL (74-118) Calcium Level 10.2 mg/dL (8.4-10.2) Total Bilirubin 0.7 mg/dL (0.2-1.2) Aspartate Amino Transf (AST/SGOT) 42 IU/L (5-34) Alanine Aminotransferase (ALT/SGPT) 45 IU/L (0-55) Alkaline Phosphatase 280 IU/L (40-150) Creatine Kinase 71 IU/L (29-168) Creatine Kinase MB 1.60 ng/mL (0-5.0) Troponin I 0.001 ng/mL (0-0.300) Total Protein 7.3 g/dL (6.5-8.1) Albumin 3.7 g/dL (3.5-5.0) Globulin 3.6 g/dL (2.3-3.5) Albumin/Globulin Ratio 1.0 (0.8-2.0) Lipase < 4 U/L (8-78) Lab results reviewed: Yes Imaging Imaging results reviewed: Yes Impressions CT abdomen and pelvis shows multiple hypodense masses identified within the liver concerning for metastatic disease. There is some evidence of soft tissue fullness at the level of the pancreatic head with atrophic changes and ductal dilatation noted with the pancreatic body and tail. Concerns for underlying pancreatic lesion. There are some multilevel degenerative changes of the thoracolumbar spine with mild age indeterminate compression fractures of T12 and L1 vertebral bodies Critical Care Time Subsequent provider I assumed direction of critical care for this patient from another provider of my specialty. Assessment & Plan Assessment & Plan Final Impression: (1) GENERALIZED ABDOMINAL PAIN Assessment & Plan cbc, cmp, CT AP further work up for abdominal mass Depart Disposition: ADMITTED Last Vital Signs Date Time Temp Pulse Resp B/P (MAP) Pulse Ox O2 Delivery O2 Flow Rate FiO2 04/16/20 17:23 76 18 164/85 98 04/16/20 11:45 96.9 Home Meds Reported Medications Ubidecarenone (COQ-10) 100 Mg Capsule, 2 TAB DAILY 04/17/20 Losartan Potassium (LOSARTAN POTASSIUM) 25 Mg Tablet, 1 TAB HS 04/17/20 Rosuvastatin Calcium (CRESTOR) 10 Mg Tab, 1 TAB HS THERAPEUTICALLY SUBSTITUTED WITH SIMVASTATIN 40MG 04/17/20 Dicyclomine Hcl (DICYCLOMINE HCL) 20 Mg Tablet, 20 MG PO TID, TAB 04/17/20 Pantoprazole Sodium* (PROTONIX) 40 Mg Tablet.dr, 40 MG PO BID, TAB 04/17/20 Carvedilol (CARVEDILOL) 3.125 Mg Tablet, 6.25 MG PO BID, #60 TAB 04/17/20 Discontinued Reported Medications Tramadol Hcl (ULTRAM) 50 Mg Tablet, 50 MG PO Q6H PRN for BREAKTHROUGH PAIN, TAB 04/17/20 Medications in the ED Carvedilol 6.25 mg ONCE ONCE PO Last administered on 04/16/20at 15:10; Admin Dose 6.25 MG; Start 04/16/20 at 14:45; Stop 04/16/20 at 14:46 SHAINA PATEL, DO Apr 16, 2020 18:05
[2020-04-16] MEDS ORDERED: HYDRALAZINE HCL 20 MG/ML VIAL IV PRN (21:30)
[2020-04-16] MEDS ORDERED: ACETAMINOPHEN 325 MG TAB PO PRN (23:00)
[2020-04-16] MEDS ORDERED: DOCUSATE SODIUM 100 MG CAP PO PRN (23:00)
[2020-04-17] MEDS: NIFEDIPINE CR 30 MG TAB PO SCH ×2 (02:13→13:07)
[2020-04-17] MEDS: SODIUM CHLORIDE 0.9% 1000ML 1,000 ML IV SCH ×3 (02:13→20:00)
[2020-04-17] MEDS: ENOXAPARIN SOD INJ 40 MG/0.4 ML SYR SC SCH ×2 (02:13→16:51)
[2020-04-17] MEDS ORDERED: IOPAMIDOL 370 MG/ML 200 ML INFUS..BTL INJ ONE (02:34)
[2020-04-17] MEDS ORDERED: SODIUM CHLORIDE 0.9% 50ML 50 ML ONE (02:34)
--- NOTE | 2020-04-17 02:52 | History and Physical ---
CHIEF COMPLAINT: Abdominal pain for several months. HISTORY OF PRESENT ILLNESS: This is an 80-year-old female, comes into the ED with complaints of abdominal pain ongoing since 2018. The patient has seen several physicians. Of note, she was told that she may have cancer and of note, she stated that some doctor said that she had some inflammation, but she never got a straight answer according to her. She reports having diffuse abdominal pain throughout, associated nausea, 20-pound weight loss over the last several months. She denies any chest pain, palpitation or any vomiting. Denies any dysphagia. CT imaging performed here shows evidence of metastatic disease concerning for underlying malignancy. No family history of any cancer which she reports. The patient was seen and evaluated at bedside in the ER. She is currently doing well. She is very frail, cachectic. She reports she has 6 children. She has one and she stated that she would like to talk to her children before we pursue any interventions. Oncology has been consulted. REVIEW OF SYSTEMS: Pertinent positives: Diffuse abdominal pain, decreased oral intake, 20-pound weight loss. The rest of 14-point review of systems are reviewed with the patient and are negative. ALLERGIES: CODEINE, HYDROCODONE, NIACIN. HOME MEDICATIONS: None. PAST MEDICAL HISTORY: Reports hypertension. PAST SURGICAL HISTORY: Reports none. FAMILY HISTORY: Hypertension and diabetes. SOCIAL HISTORY: No drugs. No alcohol. Does not smoke. She has 6 children. She is . PHYSICAL EXAMINATION: VITAL SIGNS: Temperature is 96.9, pulse 77, respiratory rate 16, blood pressure 130/87, pulse ox 97% on room air. GENERAL: Not in acute distress. Alert and oriented x3. Cooperative on examination. HEENT: Head; normocephalic, atraumatic. Eyes; pupils are equal, round, and reactive to light bilaterally. Extraocular movements intact bilaterally. Throat; no evidence of erythema or exudates in the posterior pharynx. Has poor dentition. NECK: Supple. Good range of motion. PULMONARY: Clear to auscultation bilaterally. No wheezing, no rales, no rhonchi, no crackles appreciated. CARDIOVASCULAR: Positive S1 and S2. No murmurs, rubs, or gallops appreciated. ABDOMEN: Soft, nondistended, and nontender to palpation. Bowel sounds present. MUSCULOSKELETAL: Strength is 5/5 throughout. No evidence of any muscle deficits on examination. No weakness appreciated. SKIN: Intact. Warm to touch. Good cap refill. PSYCHIATRIC: Normal affect and mood. EXTREMITIES: No edema. Good range of motion throughout. LABORATORY DATA: Show white count 12.12, hemoglobin 13, hematocrit is 39, and platelets of 320. Chemistry; sodium 137, potassium 3.5, chloride 96, bicarb 29, anion gap of 15, BUN is 9, creatinine 0.71, glucose 161, calcium 10.2, total bilirubin 0.7, AST 42, ALT 45, alkaline phosphatase 280. CK 71. Troponins are negative albumin 3.7, lipase is less than 4. Urinalysis found to be negative. Coronavirus PCR is pending. MICROBIOLOGY: None. DIAGNOSTIC STUDIES: CT abdomen and pelvis consistent with multiple hypodense masses in the liver with metastatic disease throughout. Also, has metastatic masses in the pancreas as well. Also, has multi degenerative compression fractures in T12 and L1. IMPRESSION: 1. Abdominal pain secondary to metastatic cancer, unknown source. 2. Significant weight loss. 3. Severe protein-calorie malnutrition. 4. Generalized weakness. PLAN: At this time, CT imaging consistent with metastatic disease. I did put an IR consult for a biopsy of the liver to see what the pathology would be. Oncology has been consulted. IV fluids. Discontinue morphine. Add IV Dilaudid as the patient is excruciating pain. I already ordered a CA-19-9 and CA-125. We will defer the rest of the serologies to Oncology. Put on Lovenox for DVT prophylaxis. She is on a regular diet, n.p.o. after midnight for possible biopsy if able to be performed tomorrow. I discussed the findings with the patient at bedside concerning for underlying malignancy. She seems to be okay with the information. She would like to talk to her family first before pursuing any treatments. MD ACACIA Kaur/ANDRÉS /[id number]
[2020-04-17 07:49] LABS: INR 0.96; PROTHROMBIN TIME 13.3 seconds (11.9-14.5)
[2020-04-17] MEDS: HYDROMORPHONE 1MG/1ML INJ IV PRN ×4 (08:50→21:58)
[2020-04-17 09:48] VITALS: BP 140/59
[2020-04-17 10:08] LABS: ALANINE AMINOTRANSFERASE 32 IU/L (0-55); ALBUMIN 2.9 g/dL (3.5-5.0); ALBUMIN/GLOBULIN RATIO 0.9 (0.8-2.0); ALKALINE PHOSPHATASE 244 IU/L (40-150); ANION GAP 13.2 mmol/L (8-16); BLOOD UREA NITROGEN 8 mg/dL (7-26); BUN/CREATININE RATIO 13 (6-25); CALCIUM 8.7 mg/dL (8.4-10.2); CARBON DIOXIDE 28 mmol/L (22-29); CHLORIDE 97 mmol/L (98-107); CREATININE, SERUM 0.62 mg/dL (0.57-1.11); EST GLOMERULAR FILTRATION RATE > 60 ML/MIN (60-); GLUCOSE 106 mg/dL (74-118); POTASSIUM 3.2 mmol/L (3.5-5.1); SODIUM 135 mmol/L (136-145)
[2020-04-17] MEDS ORDERED: MIDAZOLAM HCL 2 MG/2 ML VIAL ONE (11:24)
[2020-04-17] MEDS ORDERED: FENTANYL CITRATE/PF 100MCG/2 ML INJ ONE (11:24)
[2020-04-17 11:54] LABS: BASOPHILS # (AUTO) 0.1 (0.0-0.1); BASOPHILS % 0.6 % (0.0-1.0); EOSINOPHILS # (AUTO) 0.1 (0.0-0.4); EOSINOPHILS % 0.9 % (0.0-6.0); HEMATOCRIT 35.9 % (34.2-44.1); LYMPHOCYTES # (AUTO) 0.7 (1.0-3.2); LYMPHOCYTES % 7.7 % (18.0-39.1); MEAN CORPUSCULAR HEMOGLOBIN 30.5 pg (28-32); MEAN CORPUSCULAR HGB CONC 33.4 g/dL (31-35); MEAN CORPUSCULAR VOLUME 91.3 fL (81-99); MONOCYTES # (AUTO) 0.6 (0.2-0.8); MONOCYTES % 6.9 % (4.4-11.3); NEUTROPHILS # (AUTO) 7.2 (2.1-6.9); NEUTROPHILS % 83.4 % (38.7-80.0); PLATELET COUNT 255 x10e3/uL (140-360); RED BLOOD COUNT 3.93 x10e6/uL (3.6-5.1); RED CELL DISTRIBUTION WIDTH 12.7 % (11.7-14.4)
--- NOTE | 2020-04-17 12:27 | NUR ---
Pt out of room and no family at bedside. A card was left at the bedside to indicate a missed visit from a member of the Spiritual Care team and to inform the pt and family of the availability of a Step Finisher 24 hours a day/7 days a week. Step Finisher will follow up as able. NYLA BALLESTEROS Step Finisher Spiritual Care Department O: [phone]
--- NOTE | 2020-04-17 12:32 | NUR ---
Patient arrived to this unit at 0940. Patient was oriented to room, procedures, and assessed. She is AOx3, ambulates with assist, c/o of pain behind knee and states it is a "luke's cyst", patient also complained of abdominial pain. Which the abdominal pain is why she came to the hospital, she was diagnosed last night with pancreatic cancer with susy to liver. Patient was assessed by Dr. Caceres in room as well. Stated the next steps, such as liver biopsy, and what we would do after that. Patient stated she didn't want to tell her family until the biopsy and oncologist came to see her. Patient had no other questions at this time.
--- NOTE | 2020-04-17 12:36 | NUR ---
Patient report called from radiology, patient had 3 passes with the biopsy and has 1 band aid in her RUQ. Patient is a little drowsy but doing good. Patient will be transported back to room soon. Will asses when she arrives.
[2020-04-17 13:00] VITALS: BP 154/78
[2020-04-17 13:23] VITALS: BP 154/78
[2020-04-17] MEDS ORDERED: CARVEDILOL3.125 MG PO (14:06)
[2020-04-17] MEDS ORDERED: CRESTOR10 MG (14:06)
[2020-04-17] MEDS ORDERED: COQ-10100 MG (14:06)
[2020-04-17] MEDS ORDERED: LOSARTAN POTASS25 MG (14:06)
[2020-04-17] MEDS ORDERED: PANTOPRAZOLE SO40 MG PO (14:06)
[2020-04-17] MEDS ORDERED: ULTRAM50 MG PO (14:06)
[2020-04-17] MEDS ORDERED: DICYCLOMINE HCL20 MG PO (14:06)
--- NOTE | 2020-04-17 15:24 | Diagnostic Imaging Report ---
PROCEDURE: Ultrasound-guided biopsy Procedural Personnel Attending physician(s): Elena Aguirre MD Fellow physician(s): None Resident physician(s): None Advanced practice provider(s): None Pre-procedure diagnosis: Liver masses Post-procedure diagnosis: Same Indication: Histopathologic diagnosis Previous biopsy of same target (QCDR): No Additional clinical history: None Complications: No immediate complications. IMPRESSION: Ultrasound-guided biopsy of left liver mass. Plan: Specimen(s) sent for evaluation. PROCEDURE SUMMARY: - Percutaneous US-guided focal liver biopsy - Additional procedure(s): None PROCEDURE DETAILS: Pre-procedure Reference imaging for biopsy target: Abd/pelvis CT 04/16/2020 Consent: Informed consent for the procedure including risks, benefits and alternatives was obtained and time-out was performed prior to the procedure. Preparation: The site was prepared and draped using maximal sterile barrier technique including cutaneous antisepsis. Anesthesia/sedation Level of anesthesia/sedation: Moderate sedation (conscious sedation) 1mg Versed, 50mcg Fentanyl Anesthesia/sedation administered by: Independent trained observer under attending supervision with continuous monitoring of the patient?s level of consciousness and physiologic status Total intra-service sedation time (minutes): 30 Imaging prior to biopsy The patient was positioned supine. Initial ultrasound was performed. Biopsy target: - Maximal diameter (cm): 2 - Location: Left liver Other findings: None Biopsy Local anesthesia was administered. Under US guidance, the biopsy needle was advanced to the target and biopsy was performed. Coaxial needle: 17 gauge Core needle biopsy device: Wireless Techno Core needle size: 18 gauge Number of core specimens: 3 Needle removal The biopsy needle was removed and a sterile dressing was applied. Tract embolization: None Imaging following biopsy Immediate post-biopsy ultrasound was performed. Post-biopsy imaging findings: No hematoma Additional Details Additional description of procedure: None Equipment details: None Specimens removed: Biopsy samples as detailed above Estimated blood loss (mL): Less than 10 Standardized report: [email or web address] Attestation Signer name: Elena Aguirre MD I attest that I was present for the entire procedure. I reviewed the stored images and agree with the report as written. Signed by: Elena Aguirre MD on 04/17/2020 3:21 PM
[2020-04-17 16:00] VITALS: BP 130/65
--- NOTE | 2020-04-17 19:00 | NUR ---
RECEIVED PATIENT IN BEDSIDE SHIFT REPORT. PATIENT RESTING IN BED AT THIS TIME. MODERATE PAIN, BUT RECENTLY MEDICATED. NO S&S OF DISTRESS NOTED. BANDAID TO JULIA C/D/I. NS @ 100ML/HR TO Jessy SPANGLER. BED LOCKED IN LOWEST POSITION, SIDE RAILS UPX2, CALL LIGHT IN REACH. Addendum: 04/18/20 at 9339 by Maryann Cruz RN IV TO Jessy CANO, NOT R CRYS
[2020-04-17 20:00] VITALS: BP 154/63
[2020-04-17 20:55] VITALS: BP 154/63
--- NOTE | 2020-04-17 23:06 | Progress Note ---
DATE: 04/17/2020 Medicine Progress Note SUBJECTIVE: The patient was evaluated this morning approximately around 9:30 a.m. The patient was doing well today. She was scheduled to get a CT-guided liver biopsy by IR today. No overnight events. PHYSICAL EXAMINATION: VITAL SIGNS: Temperature was 98.7, pulse 92, respiratory rate is 18, blood pressure 140/59, and pulse ox is 91% on room air. GENERAL: Not in acute distress. Alert and oriented x3. Cooperative on examination. HEENT: Head; normocephalic, atraumatic. Eyes; pupils are equal, round, and reactive to light bilaterally. PULMONARY: Clear to auscultation bilaterally. No wheezing, no rales, no rhonchi, no crackles appreciated. CARDIOVASCULAR: Positive S1 and S2. No murmurs, rubs, or gallops appreciated. ABDOMEN: Soft, nondistended, and nontender to palpation. Bowel sounds present. MUSCULOSKELETAL: Strength is 5/5 throughout. No evidence of any muscle deficits on examination. No weakness appreciated. NEUROLOGIC: Cranial nerve II through XII grossly intact. No evidence of any neurological deficits on exam. SKIN: Intact. Warm to touch. Good cap refill. PSYCHIATRIC: Normal affect and mood. EXTREMITIES: No edema. Good range of motion throughout. LABORATORY DATA: White count 8.6, hemoglobin 12, hematocrit is 35, and platelets of 255. Chemistry; sodium 135, potassium 3.2, chloride 97, bicarb 20, anion gap of 13, BUN is 8, creatinine 0.62, glucose was 244. Lipase less than 4. Alpha fetoprotein and CEA antigen were pending. SEROLOGIES: Coronavirus PCR is pending. IMAGING STUDIES: Liver biopsy performed today. IMPRESSION: 1. Abdominal pain secondary to metastatic cancer, unknown source. 2. Significant weight loss, likely secondary to malignancy. 3. Severe protein-calorie malnutrition. 4. Generalized weakness. 5. Chronic pain due to underlying malignancy. PLAN: At this time, she had a CT-guided liver biopsy performed by IR today. Continue with pain control. Several serologies including CA-19-9, CA-125, CEA and alpha fetoprotein has been ordered. Oncology has been notified. I discussed this plan with them as well. The biopsy results will take several days to get the results. I would like to get the patient pain control before discharge. Also encourage ambulation as well as oral feeds. We will initiate Lovenox tomorrow after her biopsy has been more than 24 hours. Discussed plan of care with the patient at bedside. She would like for me not to talk with her children at this time. She would like to talk with them first with the results. MD ACACIA Kaur/ANDRÉS /[id number]
[2020-04-18] VITALS (8 sets, daily range): BP systolic 107–166; BP diastolic 56–89
[2020-04-18] MEDS: HYDROMORPHONE 1MG/1ML INJ IV PRN ×3 (01:35→08:36)
[2020-04-18] MEDS: SODIUM CHLORIDE 0.9% 1000ML 1,000 ML IV SCH ×2 (06:02→15:04)
[2020-04-18 06:46] LABS: BASOPHILS # (AUTO) 0.1 (0.0-0.1); BASOPHILS % 0.5 % (0.0-1.0); EOSINOPHILS # (AUTO) 0.1 (0.0-0.4); EOSINOPHILS % 0.7 % (0.0-6.0); HEMATOCRIT 34.2 % (34.2-44.1); HEMOGLOBIN 11.4 g/dL (12.0-16.0); LYMPHOCYTES # (AUTO) 1.1 (1.0-3.2); MEAN CORPUSCULAR HEMOGLOBIN 31.2 pg (28-32); MEAN CORPUSCULAR HGB CONC 33.3 g/dL (31-35); MEAN CORPUSCULAR VOLUME 93.7 fL (81-99); MONOCYTES # (AUTO) 1.1 (0.2-0.8); MONOCYTES % 10.7 % (4.4-11.3); NEUTROPHILS # (AUTO) 7.9 (2.1-6.9); PLATELET COUNT 221 x10e3/uL (140-360); RED BLOOD COUNT 3.65 x10e6/uL (3.6-5.1); RED CELL DISTRIBUTION WIDTH 12.5 % (11.7-14.4)
[2020-04-18 07:07] LABS: ANION GAP 13.4 mmol/L (8-16); BLOOD UREA NITROGEN 5 mg/dL (7-26); BUN/CREATININE RATIO 9 (6-25); CALCIUM 8.9 mg/dL (8.4-10.2); CARBON DIOXIDE 29 mmol/L (22-29); CHLORIDE 98 mmol/L (98-107); CREATININE, SERUM 0.58 mg/dL (0.57-1.11); EST GLOMERULAR FILTRATION RATE > 60 ML/MIN (60-); GLUCOSE 146 mg/dL (74-118); POTASSIUM 3.4 mmol/L (3.5-5.1); SODIUM 137 mmol/L (136-145)
[2020-04-18] MEDS: NIFEDIPINE CR 30 MG TAB PO SCH (08:36)
--- NOTE | 2020-04-18 09:05 | NUR ---
ASSESSMENT: Spiritual concern Pt resolved concerning illness. Pt states "it's my time (to )" and that she has discussed her wishes with her , but not their children at this time. Pt identifies as Protestant. Pt states she has a large blended family of children, grandchildren and great-grandchildren. Intervention: Provided hospitality and unhurried pastoral presence. Provided empathic listening and prayer. Pt requests follow-up visit. Outcome: Pt expressed appreciation for visit. Will follow as able. NYLA BALLESTEROS Escort Vehicle Driver Spiritual Care Department O: [phone]
[2020-04-18] MEDS ORDERED: POTASSIUM CHLORIDE 20 MEQ TAB CR PO ONE (09:55)
[2020-04-18] MEDS ORDERED: HYDROCODONE/APAP 10MG-325MG TAB PO PRN (10:30)
[2020-04-18] MEDS: OXYCODONE/ACETAMINOPHEN 5-325 1 EACH TABLET PO PRN ×2 (13:29→21:47)
--- NOTE | 2020-04-18 14:43 | NUR ---
WENT TO SPEAK WITH PATIENT ABOUT HOSPICE ORDER. SHE STATES SHE MET WITH THE PALLIATIVE NUTRITION PROFESSOR, STATES THAT HER FAMILY IS UNAWARE AND SHE DOESNT WANT TO MAKE A DECISION UNTIL SHE GETS THE BIOPSY RESULTS BACK FROM HERE. SHE STATES SHE FEELS LIKE SHE KNOWS THE RESULTS AND WILL SPEAK WITH HER FAMILY WHEN THAT RESULT IS GIVEN. WILL DEFER UNTIL PT IS READY FOR DECISION.
--- NOTE | 2020-04-18 15:18 | NUR ---
Patient had a consult for hospice/ palliative care. The ATTACHER talked with patient, who is still undecided. Patient will be seen tomorrow for further evaluation and next steps. Will continue to monitor.
--- NOTE | 2020-04-18 16:58 | NUR ---
Nutrition Intervention Note RD Recommendation(s) for Physician: - Recommend to continue regular diet - Ensure Enlive BID for added nutrition Plan of Care: RD following, monitoring for tolerance and adequacy, oral supplement recommendation Nutrition reason for involvement: Nutrition Risk Trigger MST 2 RD Assessment (04/18/20) Pt is an 80 year old female admitted with generalized abdominal pain. Per MD note, CT of the abdomen and pelvis indicated multiple masses in the liver with metastatic disease as well as metastatic masses in the pancreas. Pt reported a poor appetite with <50% meal intake over the past 2-3 months. Pt also mentioned she had lost 10 lbs since September. Pt currently has a weight of 110 lbs in chart. This would be an 8% weight loss in 7 months which is nonsignificant weight loss. No N/V, but pt reports some constipation. Will continue to monitor. Principal Problems/Diagnoses: generalized abdominal pain, multiple masses in the liver and pancreas with metastatic disease PMH: hypertension GI: soft, non-tender abdomen Skin: intact Labs: (04/18) Na 137, K 3.4, BUN 5, Cr 0.58, Glu 146, Ca 8.9 Meds: colace, hydralazine, zofran, colace, protonix, losartan Ht: 60 inches Wt: 110 lbs BMI: 21.5 kg/m2 IBW: 100 lbs Malnutrition Evaluation (04/18/20) The patient does not meet criteria for a specified degree of malnutrition at this time. Will re-evaluate at follow-up as appropriate. Energy intake: <75% of estimated energy requirements for >1 month Weight loss: 8% in 7 months not significant weight loss Muscle loss: some loss in lower extremities Supporting Evidence: Fluid accumulation: no edema per MD note Functional Status: unable to evaluate Nutrition Prescription (Diet Order): regular diet Estimated Nutritional Needs: 2663-9868 calories/day (25-35 kcal/kg CBW) 50-75 g protein/day (1-1.5 g pro/kg CBW) Diet Adequacy: Not meeting calorie needs, Not meeting protein needs Tolerance: Tolerating PO Diet Education Needs Assessment: Diet education not indicated; patient on regular diet. Nutrition Care Level: moderate Nutrition Diagnosis: Inadequate energy intake related to decreased ability to consume sufficient energy secondary to pts medical status as evidenced by pt eating <50% of meals for > 1 month and 8% weight loss in 7 months. Goal: Patient will meet 75-100% of estimated needs by follow up Progress: N/A Interventions: -General healthful diet, Commercial beverage Monitoring/Evaluation: -Total energy intake, Total protein intake, Liquid supplement, Weight change Signed: Norma Murrell RD, LD
[2020-04-18] MEDS: ENOXAPARIN SOD INJ 40 MG/0.4 ML SYR SC SCH (17:05)
[2020-04-18] MEDS: DOCUSATE SODIUM 100 MG CAP PO SCH (17:05)
[2020-04-18] MEDS: PANTOPRAZOLE SOD 40 MG TABEC PO SCH (17:05)
[2020-04-18] MEDS: DICYCLOMINE HCL 20 MG TAB PO SCH ×2 (17:05→21:00)
[2020-04-18] MEDS: CARVEDILOL 3.125 MG TAB PO SCH (17:06)
--- NOTE | 2020-04-18 20:06 | NUR ---
RECEIVED PT IN BED AOX3 .RESPIRATIONS ARE EVEN AND UNLABORED .RT FA 20 G NS RUNNING AT 100CC/HR .CALL LIGHT WITH IN REACH .CONTINUE TO MONITOR
[2020-04-18] MEDS: LOSARTAN POTASSIUM 25 MG TAB PO SCH (21:00)
[2020-04-19] VITALS (9 sets, daily range): BP systolic 103–164; BP diastolic 64–84
--- NOTE | 2020-04-19 02:31 | Progress Note ---
DATE: 04/18/2020 Medicine Progress Note SUBJECTIVE: The patient still reports having some pain. She reports that the pain medication is helpful, but still needs some more. We are in the process of converting her from IV to oral. I spoke with Oncology, speech to follow up in our office for pathology results. I did go ahead and consult with Palliative Care to see if they could help her, possibly to transition home on palliative care. PHYSICAL EXAMINATION: VITAL SIGNS: Temperature is 98.4, pulse 105, respirations 15, blood pressure 120/70, pulse ox 98% on room air. GENERAL: Not in acute distress. Alert and oriented x3. Cooperative on examination. PULMONARY: Clear to auscultation bilaterally. No wheezing, no rales, no rhonchi, no crackles appreciated. CARDIOVASCULAR: Positive S1 and S2. No murmurs, rubs, or gallops appreciated. ABDOMEN: Soft, nondistended, and nontender to palpation. Bowel sounds present. MUSCULOSKELETAL: Strength is 5/5 throughout. No evidence of any muscle deficits on examination. No weakness appreciated. NEUROLOGIC: Cranial nerve II through XII grossly intact. No evidence of any neurological deficits on exam. SKIN: Intact. Warm to touch. Good cap refill. PSYCHIATRIC: Normal affect and mood. EXTREMITIES: No edema. Good range of motion throughout. LABORATORY DATA: White count 10, hemoglobin 11, hematocrit 34, platelets of 321. Chemistry; sodium 137, potassium 3.4, chloride 98, bicarb 29, anion gap of 13, BUN is 5, and creatinine is 0.6, and creatinine is 0.5. Pathology is pending. IMAGING STUDIES: Nothing new. IMPRESSION: 1. Abdominal pain secondary to metastatic cancer, unknown source. 2. Significant weight loss secondary to malignancy. 3. Severe protein-calorie malnutrition. 4. Generalized weakness. 5. Chronic pain due to underlying malignancy. PLAN: At this time, awaiting final results of the pathology. Several serologies are pending. I am going discontinue IV Dilaudid and put her on oral Percocet to try to prep this patient for discharge soon. I will also encourage ambulation, oral feeds. Lovenox for DVT prophylaxis. Discussed plan of care with Oncology already and the nursing staff. MD ACACIA Kaur/ANDRÉS Rizo: 04/18/2020 23:28:11 /[id number]
[2020-04-19] MEDS: SODIUM CHLORIDE 0.9% 1000ML 1,000 ML IV SCH ×2 (04:59→08:13)
[2020-04-19] MEDS: OXYCODONE/ACETAMINOPHEN 5-325 1 EACH TABLET PO PRN ×3 (05:11→18:00)
--- NOTE | 2020-04-19 07:19 | NUR ---
PT C/O PAIN AND GIVEN ORDERED PAIN MEDICATION .CALL LIGHT WITH IN REACH BEDSIDE REPORT GIVEN TO THE ONCOMING NURSE
[2020-04-19 08:04] LABS: FERRITIN 659.9 ng/mL (4.63-204.00)
[2020-04-19] MEDS: NIFEDIPINE CR 30 MG TAB PO SCH (08:13)
[2020-04-19] MEDS: DICYCLOMINE HCL 20 MG TAB PO SCH ×3 (08:13→21:00)
[2020-04-19] MEDS: CARVEDILOL 3.125 MG TAB PO SCH ×2 (08:13→16:51)
[2020-04-19] MEDS: PANTOPRAZOLE SOD 40 MG TABEC PO SCH ×2 (08:13→16:50)
[2020-04-19] MEDS: DOCUSATE SODIUM 100 MG CAP PO SCH ×2 (08:13→16:50)
--- NOTE | 2020-04-19 08:43 | NUR ---
OBS DAY 3. CALL TO DR. KEE REGARDING DC PLAN. AWAITING CALL BACK. SENT TO R1.
--- NOTE | 2020-04-19 11:54 | NUR ---
ORDER RECEIVED FOR HOME HEALTH. SW MET W THE PT AND PT [facility]OSE [facility]. REFERRAL WAS FAXED TO [facility] @ OFF: [phone] / FAX: [phone]
[2020-04-19] MEDS ORDERED: POLYETHYLENE GLYCOL 3350 17 GM PACK PO SCH (14:30)
[2020-04-19] MEDS ORDERED: DOCUSATE SODIUM 100 MG CAP PO SCH (14:30)
[2020-04-19] MEDS: ENOXAPARIN SOD INJ 40 MG/0.4 ML SYR SC SCH (16:50)
--- NOTE | 2020-04-19 18:57 | NUR ---
Patient IV infiltrated. Patient refused a new IV. Dr. Caceres aware. Patient states "she's drinking enough and her kidneys work fine." reported to doctor. Will continue to monitor.
--- NOTE | 2020-04-19 19:52 | NUR ---
RECEIVED PT IN BED AOX3 .DENIES PAIN ..PT HAS NO IV .TELE #31 SHOWS SR CALL LIGHT WITH IN REACH .CONTINUE TO MONITOR
[2020-04-19] MEDS: LOSARTAN POTASSIUM 25 MG TAB PO SCH (21:00)
[2020-04-20] MEDS: OXYCODONE/ACETAMINOPHEN 5-325 1 EACH TABLET PO PRN ×2 (00:22→08:25)
[2020-04-20 00:35] VITALS: BP 118/65
--- NOTE | 2020-04-20 01:32 | Progress Note ---
DATE: Medicine Progress Note SUBJECTIVE: The patient is doing well, but she is complaining of severe abdominal pain. She states she is very weak and she is not ready for discharge at this time. I spoke with the at bedside. Nurse was present throughout the entire conversation. PHYSICAL EXAMINATION: VITAL SIGNS: Temperature is 98, pulse 96, respirations 21, blood pressure 103/66, pulse ox 98% on room air. GENERAL: Not in acute distress. Alert and oriented x3. Cooperative on examination. HEENT: Head is normocephalic and atraumatic. Eyes; pupils are equal, round, and reactive to light bilaterally. Extraocular movements intact bilaterally. Throat; no evidence of erythema or exudates in the posterior pharynx. Has poor dentition. NECK: Supple. Good range of motion. PULMONARY: Clear to auscultation bilaterally. No wheezing, rales, or rhonchi. No crackles appreciated. CARDIOVASCULAR: Positive S1, S2. No murmurs, rubs, or gallops appreciated. ABDOMEN: Soft, nondistended, and nontender to palpation. Bowel sounds present. MUSCULOSKELETAL: Strength is 5/5 throughout. SKIN: Intact. Warm to touch. Good cap refill. PSYCHIATRIC: Normal affect and mood. EXTREMITIES: No edema. Good range of motion throughout. LABORATORY FINDINGS: White count 10, hemoglobin 11, hematocrit 34, platelets of 221. Chemistry; sodium 137, potassium 3.4, chloride is 98, bicarb 29, anion gap of 13, BUN is 5, creatinine is 0.58. IMPRESSION: 1. Abdominal pain secondary to metastatic cancer, unknown source. 2. Significant weight loss secondary to malignancy. 3. Severe protein-calorie malnutrition. 4. Generalized weakness. 5. Chronic pain due to underlying malignancy. PLAN: At this time, the patient reports she is not ready for discharge. She reports that her pain is not controlled. I discontinued the IV Dilaudid. I increased the Percocet to 10 mg q.6 hours. I would like to see how she responds to this Percocet new regimen. Encourage ambulation. She reports she is still very weak. Lovenox for DVT prophylaxis. I spoke with the at bedside about the plan of care in which they need to follow up very closely with the oncologist as an outpatient to get the final results. At this time, pathology is not available. Continue with pain control. Regular diet. Lovenox for DVT prophylaxis. Discharge home tomorrow. Discussed plan of care with nursing staff and Case Management. MD ACACIA Kaur/MODL /[id number]
[2020-04-20 04:00] VITALS: BP 118/66
--- NOTE | 2020-04-20 05:30 | NUR ---
PT C/O PAIN AND GIVEN ORDERED PAIN MEDICATION .CALL LIGHT WITH IN REACH
--- NOTE | 2020-04-20 07:11 | NUR ---
BEDSIDE REPORT GIVEN TO THE ONCOMING NURSE
[2020-04-20 07:39] VITALS: BP 153/81
[2020-04-20 07:58] VITALS: BP 153/81
[2020-04-20] MEDS: PANTOPRAZOLE SOD 40 MG TABEC PO SCH ×2 (08:24→17:08)
[2020-04-20] MEDS: DICYCLOMINE HCL 20 MG TAB PO SCH ×2 (08:24→17:08)
[2020-04-20] MEDS: DOCUSATE SODIUM 100 MG CAP PO SCH ×2 (08:24→17:08)
[2020-04-20] MEDS: NIFEDIPINE CR 30 MG TAB PO SCH (08:24)
[2020-04-20] MEDS: CARVEDILOL 3.125 MG TAB PO SCH ×2 (08:24→17:08)
--- NOTE | 2020-04-20 08:25 | NUR ---
RECEIVED CALL FROM [facility] STATING PT WAS DECLINED. THE REFERRAL WAS FAXED TO [facility] @ OFF: [phone] / FAX [phone].
--- NOTE | 2020-04-20 08:30 | NUR ---
HOME HEALTH DISCHARGE NOTE PATIENT ADDRESS WHERE SERVICE WILL BE RECEIVED: [address] [place] [address] PATIENT CONTACT NUMBER: [phone] NAME OF HOME HEALTH COMPANY: [facility] TELEPHONE/FAX NUMBER OF COMPANY: OFF: [phone] / FAX: [phone] SERVICES TO RECEIVE: SKILLED NURSE EVAL AND TREAT ANTICIPATED DATE SERVICES WILL BEGIN: 1-2 DAYS POST DC; 04/21/2020 Please call the company above if you have not received a call to schedule a home visit within 24 hours of discharge.
--- NOTE | 2020-04-20 09:04 | NUR ---
RECEIVED CALL FROM [facility] CONFIRMING PT HAS BEEN ACCEPTED. INQUIRED IF PT DC'ING HOME TODAY. INFORMED PT HAS NOT HAD A BM. WILL UPDATE IF PT HAS A BM.
[2020-04-20 09:26] LABS: HEMATOCRIT 32.6 % (34.2-44.1); HEMOGLOBIN 10.8 g/dL (12.0-16.0)
[2020-04-20] MEDS ORDERED: DOCUSATE SODIUM 100 MG CAP PO ONE (09:40)
[2020-04-20] MEDS ORDERED: CITRATE OF MAGNESIA 300ML BOTTLE PO ONE (09:40)
[2020-04-20 09:53] LABS: ANION GAP 13.9 mmol/L (8-16); BLOOD UREA NITROGEN 5 mg/dL (7-26); BUN/CREATININE RATIO 9 (6-25); CALCIUM 9.1 mg/dL (8.4-10.2); CARBON DIOXIDE 27 mmol/L (22-29); CHLORIDE 101 mmol/L (98-107); CREATININE, SERUM 0.55 mg/dL (0.57-1.11); EST GLOMERULAR FILTRATION RATE > 60 ML/MIN (60-); GLUCOSE 136 mg/dL (74-118); SODIUM 139 mmol/L (136-145)
[2020-04-20 09:55] LABS: POTASSIUM 2.9 mmol/L (3.5-5.1)
[2020-04-20] MEDS: POTASSIUM CHLORIDE 20 MEQ TAB CR PO SCH ×2 (10:48→13:03)
[2020-04-20 12:08] VITALS: BP 150/76
--- NOTE | 2020-04-20 12:15 | NUR ---
Pt. expressed no spiritual or emotional concerns at this time. Tool Maintenance Technician RIGOBERTO Brown, provided hospitality, prayer and information on how to reach clothing presser, if needed. No need to follow at this time. NYLA BALLESTEROS Tool Maintenance Technician Spiritual Care Department O: [phone]
[2020-04-20] MEDS ORDERED: ONDANSETRON HCL 4 MG ORAL DISINTEGRATING TAB PO PRN (13:30)
[2020-04-20 16:03] VITALS: BP 135/75
[2020-04-20] MEDS: ENOXAPARIN SOD INJ 40 MG/0.4 ML SYR SC SCH (17:08)
--- NOTE | 2020-04-20 19:10 | NUR ---
Patient received discharge order from once potassium was at 4.0. Patient was wheeled to car and put in 's car. Patient did not have an IV . Patient was given all prescriptions and discharge paperwork.
--- NOTE | 2020-04-21 01:02 | Discharge Summary ---
FINAL DISCHARGE DIAGNOSES: 1. Intraabdominal masses, likely metastatic cancer, unknown source at this time, status post liver biopsy, pending results. 2. Significant weight loss, secondary to malignancy. 3. Severe protein-calorie malnutrition. 4. Generalized weakness. 5. Chronic pain due to underlying malignancy. CONSULTANTS: 1. Hematology/Oncology. 2. Interventional Radiology. PHYSICAL EXAMINATION: VITAL SIGNS: Temperature is 98, pulse 98, respiratory rate is 16, blood pressure is 135/75, pulse ox is 97%. She is on room air. LABORATORY DATA: Labs show white count 10.3, hemoglobin 10.8, hematocrit 32.6, platelets of 221. Coagulation PT 13, INR 0.96, PTT 43. Chemistry, sodium 139; potassium is 2.9, repeat after supplements 4.2; chloride 101, bicarb 27, anion gap of 13. BUN is 5, creatinine is 0.55, glucose 136, calcium is 9.1. Iron saturation was 12%. Ferritin was 659. Vitamin B12 was 940. RBC folate was 458. CA-125 was 12.05, CEA was 46, CA-19-9 was pending. Alpha fetoprotein was 1.5, albumin 2.9. LFTs, total bilirubin was 0.7, AST 42, ALT 45, alkaline phosphatase 280. Troponins were negative. Total protein 7.2, albumin 3.7. SEROLOGY: Coronavirus PCR was nondetected. MICROBIOLOGY: None. DIAGNOSTIC STUDIES: CT abdomen and pelvis shows multiple hypodense masses identified within the liver concerning for metastatic disease. There is some evidence of soft tissue fullness at the level of the pancreatic head with atrophic changes and ductal dilatation noted with the pancreatic body and tail. Concerns for underlying pancreatic lesion. There are some multilevel degenerative changes of the thoracolumbar spine with mild age indeterminate compression fractures of T12 and L1 vertebral bodies. Liver biopsy performed. Ultrasound-guided performed by Interventional Radiology. HOSPITAL COURSE: This is an 80-year-old female, who came into the ED with complaints of abdominal pain since September of 2019, during . The patient has been seen the physicians on and off over the last several months. The patient did not get further evaluation. Of note, came into the ED with worsening abdominal pain needing further evaluation. CT scan of the abdomen and pelvis was consistent with intraabdominal masses concerning for underlying malignancy. The patient was found to have metastatic cancer throughout the abdomen. Ultrasound-guided liver biopsy was performed by Interventional Radiology. Pathology was sent for results, which were still pending prior to being discharged. Hematology/Oncology was consulted. Several serologies were ordered. The patient was educated about following up with the oncologist as an outpatient for final oncological pathology results, which will likely be available sometime next week. She will need to follow with Oncology for further treatment and care. I discussed this with the patient's at bedside as well. The patient also had chronic pain, in which she stayed longer in the hospital stay for adjustment of her pain medications. She was discharged on oral Percocet. On the day of discharge, vital signs were stable. Labs reviewed and stable. The patient is seen and evaluated and examined thoroughly on the day of discharge. No other complaints. The patient verbalized understanding and agrees to plan of care to follow up as an outpatient with the primary care physician in 1 week and oncologist in 1 week time. It was vital to follow up with the oncologist to get the final pathology results. I reiterated that with the patient and the patient's and they verbalized understanding. MEDICATIONS: See med reconciliation form. DISPOSITION: To home. CONDITION: Stable. DIET: Heart healthy. In the event of any worsening symptoms, the patient advised to come back to the ED for further evaluation. Discharge summary took greater than 35 minutes. MD ACACIA Kaur/ANDRÉS /[id number]
== END 2020-04-20 19:00 | disposition home or self-care (01) | DRG 374 ==
LOC: ER 11:27 → ERHOLD 16:24 → MED/SURG3 04-17 09:52 → OBSVTOIN 04-19 10:16
PROVIDERS: ADMIT Internal Medicine; ATTEND Internal Medicine
PROC: 0FB03ZX Excision of Liver, Percutaneous Approach, Diagnostic (ICD-10-PCS; principal; 2020-04-19)
DX: C76.2 Malignant neoplasm of abdomen (principal); E43 Unspecified severe protein-calorie malnutrition; C78.7 Secondary malignant neoplasm of liver and intrahepatic bile duct; G89.3 Neoplasm related pain (acute) (chronic); Z68.21 Body mass index [BMI] 21.0-21.9, adult; D64.9 Anemia, unspecified
CPT/HCPCS: 36415; 47000; 74177; 74470; 76942; 80048; 80053; 81001; 82105; 82378; 82550; 82553; 82607; 82728; 82747; 82948; 83540; 83690; 84132; 84466; 84484; 85014; 85018; 85025; 85045; 85610; 85730; 86301; 86304; 87635; 88307; 88313; 88342; 96361; 97139; 99284; G0378; J0360; J1170; J1650; J2250; J2270; J2405; J3010; J7030; Q9967

== ENCOUNTER 2020-07-20 17:28 | Inpatient (IN) | payer MEDICARE, OTHER ==
[~2020-07-20] VITALS: Ht 152.4 cm; Wt 45.6 kg
[~2020-07-20 17:28] MED LIST: CARVEDILOL3.125 MG PO; COQ-10100 MG; CRESTOR10 MG; DICYCLOMINE HCL20 MG PO; LOSARTAN POTASS25 MG; PANTOPRAZOLE SO40 MG PO; ULTRAM50 MG PO
[2020-07-20] MEDS ORDERED: SODIUM CHLORIDE 0.9% 1000ML 1,000 ML IV STA (17:51)
[2020-07-20] MEDS ORDERED: MORPHINE SULFATE INJ 4 MG/ML INJ 1ML IV STA (18:14)
[2020-07-20] MEDS ORDERED: ONDANSETRON HCL INJ 2MG/ML 2ML 2 MG/ML VIAL IV STA (18:15)
[2020-07-20 18:24] LABS: BASOPHILS % 0.2 % (0.0-1.0); EOSINOPHILS % 0.1 % (0.0-6.0); HEMATOCRIT 28.4 % (34.2-44.1); HEMOGLOBIN 9.4 g/dL (12.0-16.0); LYMPHOCYTES # (AUTO) 0.8 (1.0-3.2); LYMPHOCYTES % 3.8 % (18.0-39.1); MEAN CORPUSCULAR HEMOGLOBIN 34.1 pg (28-32); MEAN CORPUSCULAR HGB CONC 33.1 g/dL (31-35); MEAN CORPUSCULAR VOLUME 102.9 fL (81-99); MONOCYTES # (AUTO) 1.7 (0.2-0.8); MONOCYTES % 8.5 % (4.4-11.3); NEUTROPHILS # (AUTO) 17.3 (2.1-6.9); NEUTROPHILS % 86.6 % (38.7-80.0); PLATELET COUNT 381 x10e3/uL (140-360); RED BLOOD COUNT 2.76 x10e6/uL (3.6-5.1)
[2020-07-20 18:44] LABS: ALANINE AMINOTRANSFERASE 52 IU/L (0-55); ALBUMIN 3.4 g/dL (3.5-5.0); ALBUMIN/GLOBULIN RATIO 1.4 (0.8-2.0); ALKALINE PHOSPHATASE 1268 IU/L (40-150); ANION GAP 17.7 mmol/L (8-16); BLOOD UREA NITROGEN 14 mg/dL (7-26); BUN/CREATININE RATIO 25 (6-25); CALCIUM 8.2 mg/dL (8.4-10.2); CARBON DIOXIDE 21 mmol/L (22-29); CHLORIDE 97 mmol/L (98-107); CREATINE KINASE 32 IU/L (29-168); CREATININE, SERUM 0.56 mg/dL (0.57-1.11); EST GLOMERULAR FILTRATION RATE > 60 ML/MIN (60-); GLUCOSE 107 mg/dL (74-118); POTASSIUM 4.7 mmol/L (3.5-5.1); SODIUM 131 mmol/L (136-145)
[2020-07-20] MEDS ORDERED: MORPHINE SULFATE 2 MG/ML SYR 1ML IV STA (19:36)
[2020-07-20] MEDS ORDERED: HYDROMORPHONE 1MG/1ML INJ IV STA ×2 (20:29→20:30)
[2020-07-20] MEDS ORDERED: ONDANSETRON HCL INJ 2MG/ML 2ML 2 MG/ML VIAL IV PRN (20:30)
[2020-07-20] MEDS ORDERED: MORPHINE SULFATE 2 MG/ML SYR 1ML IV PRN (20:30)
[2020-07-20] MEDS ORDERED: SODIUM CHLORIDE 0.9% 1000ML 1,000 ML IV SCH (20:30)
[2020-07-20] MEDS ORDERED: HYDROMORPHONE 1MG/1ML INJ IV PRN (22:00)
[2020-07-20 22:17] VITALS: BP 155/66
[2020-07-21] VITALS (9 sets, daily range): BP systolic 111–175; BP diastolic 58–91
[2020-07-21] MEDS ORDERED: CRESTOR10 MG PO (00:25)
[2020-07-21] MEDS ORDERED: DICYCLOMINE HCL20 MG PO (00:27)
[2020-07-21] MEDS ORDERED: OXYCODONE HCL10 MG (00:33)
[2020-07-21] MEDS ORDERED: MIRTAZAPINE15 MG PO (00:33)
[2020-07-21] MEDS ORDERED: REGLAN10 MG PO (00:33)
[2020-07-21] MEDS ORDERED: PERCOCET 10-321 EACH PO (00:33)
[2020-07-21] MEDS ORDERED: GABAPENTIN100 MG PO (01:07)
[2020-07-21] MEDS ORDERED: LIDOPATCH1 EACH TOP (01:08)
[2020-07-21] MEDS ORDERED: MIRALAX17 GM PO (01:14)
[2020-07-21] MEDS ORDERED: SENNA LAXATIVE8.6 MG PO (01:14)
[2020-07-21] MEDS: SODIUM CHLORIDE 0.9% 1000ML 1,000 ML IV SCH ×2 (04:12→12:23)
[2020-07-21] MEDS: HYDROMORPHONE 1MG/1ML INJ IV PRN ×3 (04:12→14:07)
[2020-07-21] MEDS: ONDANSETRON HCL INJ 2MG/ML 2ML 2 MG/ML VIAL IV PRN ×2 (04:12→20:44)
[2020-07-21] MEDS ORDERED: METAMUCIL FIBE3.4 GM PO (04:40)
[2020-07-21] MEDS ORDERED: NON-FORMULARY MEDICATION (Oxycodone Hcl/Acetaminophen (Percocet 10-325 Mg Tablet) 1 TAB) PO PRN (08:45)
[2020-07-21] MEDS: UBIDECARENONE PO SCH ×2 (09:00→17:00)
[2020-07-21] MEDS ORDERED: OXYCODONE/ACETAMINOPHEN 5-325 1 EACH TABLET PO PRN (09:00)
[2020-07-21] MEDS ORDERED: OXYCODONE/ACETAMINOPHEN 5-325 1 EACH TABLET ONE (09:15)
[2020-07-21] MEDS: LIDOCAINE 4% PATCH TP SCH (10:15)
[2020-07-21] MEDS ORDERED: HYDROMORPHONE 1MG/1ML INJ IV PRN (10:45)
[2020-07-21] MEDS: CARVEDILOL 3.125 MG TAB PO SCH ×2 (11:26→17:00)
[2020-07-21] MEDS: METOCLOPRAMIDE HCL 10 MG TAB PO SCH ×2 (12:23→17:59)
[2020-07-21] MEDS: PANTOPRAZOLE SOD 40 MG TABEC PO SCH ×2 (12:23→17:00)
[2020-07-21] MEDS: DICYCLOMINE HCL 20 MG TAB PO SCH ×3 (12:23→20:40)
[2020-07-21] MEDS: POLYETHYLENE GLYCOL 3350 17 GM PACK PO SCH (12:23)
[2020-07-21] MEDS: SENNOSIDES 8.6 MG TAB PO SCH ×2 (12:23→17:10)
[2020-07-21] MEDS: HYDROMORPHONE 1MG/1ML INJ IV SCH ×4 (14:30→23:28)
[2020-07-21] MEDS: OXYCODONE/ACETAMINOPHEN 5-325 1 EACH TABLET PO SCH ×3 (16:28→22:50)
[2020-07-21] MEDS ORDERED: ENOXAPARIN SOD INJ 40 MG/0.4 ML SYR SC SCH (17:00)
[2020-07-21] MEDS: AMYLAS/CELLU/LIPAS/PROTEA/BILE 12,000 UNIT CAP PO SCH (17:10)
[2020-07-21] MEDS: PSYLLIUM 6GM PACKET PO SCH (20:40)
[2020-07-21] MEDS: MIRTAZAPINE 15 MG TAB PO SCH (20:40)
[2020-07-21] MEDS: LOSARTAN POTASSIUM 25 MG TAB PO SCH (20:40)
[2020-07-21] MEDS: SIMVASTATIN 20 MG TAB PO SCH (20:40)
[2020-07-22] VITALS (8 sets, daily range): BP systolic 116–149; BP diastolic 45–65
[2020-07-22] MEDS: SODIUM CHLORIDE 0.9% 1000ML 1,000 ML IV SCH ×4 (01:12→20:00)
[2020-07-22] MEDS: OXYCODONE/ACETAMINOPHEN 5-325 1 EACH TABLET PO SCH ×6 (02:30→22:54)
[2020-07-22] MEDS: HYDROMORPHONE 1MG/1ML INJ IV SCH ×9 (02:30→23:30)
[2020-07-22] MEDS: METOCLOPRAMIDE HCL 10 MG TAB PO SCH ×4 (06:02→17:12)
[2020-07-22 06:28] LABS: BASOPHILS % 0.2 % (0.0-1.0); EOSINOPHILS # (AUTO) 0.2 (0.0-0.4); EOSINOPHILS % 2.5 % (0.0-6.0); LYMPHOCYTES # (AUTO) 0.7 (1.0-3.2); LYMPHOCYTES % 7.5 % (18.0-39.1); MEAN CORPUSCULAR HEMOGLOBIN 34.3 pg (28-32); MEAN CORPUSCULAR HGB CONC 32.6 g/dL (31-35); MEAN CORPUSCULAR VOLUME 105.4 fL (81-99); MONOCYTES # (AUTO) 0.1 (0.2-0.8); MONOCYTES % 1.1 % (4.4-11.3); NEUTROPHILS # (AUTO) 7.8 (2.1-6.9); NEUTROPHILS % 88.1 % (38.7-80.0); PLATELET COUNT 157 x10e3/uL (140-360); RED BLOOD COUNT 1.66 x10e6/uL (3.6-5.1)
[2020-07-22 06:42] LABS: HEMATOCRIT 17.5 % (34.2-44.1); HEMOGLOBIN 5.7 g/dL (12.0-16.0)
[2020-07-22 06:50] LABS: ANION GAP 9.3 mmol/L (8-16); BLOOD UREA NITROGEN 8 mg/dL (7-26); BUN/CREATININE RATIO 21 (6-25); CARBON DIOXIDE 18 mmol/L (22-29); CHLORIDE 110 mmol/L (98-107); CREATININE, SERUM 0.39 mg/dL (0.57-1.11); EST GLOMERULAR FILTRATION RATE > 60 ML/MIN (60-); GLUCOSE 83 mg/dL (74-118); POTASSIUM 3.3 mmol/L (3.5-5.1); SODIUM 134 mmol/L (136-145)
[2020-07-22 06:58] LABS: CALCIUM 6.1 mg/dL (8.4-10.2)
[2020-07-22] MEDS: POLYETHYLENE GLYCOL 3350 17 GM PACK PO SCH (08:46)
[2020-07-22] MEDS: AMYLAS/CELLU/LIPAS/PROTEA/BILE 12,000 UNIT CAP PO SCH ×3 (08:47→16:37)
[2020-07-22] MEDS: SENNOSIDES 8.6 MG TAB PO SCH ×2 (08:47→16:24)
[2020-07-22] MEDS: LIDOCAINE 4% PATCH TP SCH (08:47)
[2020-07-22] MEDS: DICYCLOMINE HCL 20 MG TAB PO SCH ×3 (08:47→21:00)
[2020-07-22] MEDS: PANTOPRAZOLE SOD 40 MG TABEC PO SCH ×2 (08:47→16:37)
[2020-07-22] MEDS: CARVEDILOL 3.125 MG TAB PO SCH ×2 (08:47→16:37)
[2020-07-22 08:48] LABS: BASOPHILS % 0.3 % (0.0-1.0); EOSINOPHILS # (AUTO) 0.3 (0.0-0.4); EOSINOPHILS % 2.7 % (0.0-6.0); LYMPHOCYTES # (AUTO) 0.9 (1.0-3.2); LYMPHOCYTES % 7.9 % (18.0-39.1); MEAN CORPUSCULAR HEMOGLOBIN 35.1 pg (28-32); MEAN CORPUSCULAR HGB CONC 33.2 g/dL (31-35); MEAN CORPUSCULAR VOLUME 105.7 fL (81-99); MONOCYTES # (AUTO) 0.1 (0.2-0.8); MONOCYTES % 0.8 % (4.4-11.3); NEUTROPHILS # (AUTO) 9.6 (2.1-6.9); NEUTROPHILS % 87.1 % (38.7-80.0); PLATELET COUNT 171 x10e3/uL (140-360); RED BLOOD COUNT 1.94 x10e6/uL (3.6-5.1); RED CELL DISTRIBUTION WIDTH 16.8 % (11.7-14.4)
[2020-07-22 08:50] LABS: HEMATOCRIT 20.5 % (34.2-44.1); HEMOGLOBIN 6.8 g/dL (12.0-16.0)
[2020-07-22] MEDS: UBIDECARENONE PO SCH ×2 (09:11→16:23)
[2020-07-22] MEDS ORDERED: SODIUM CHLORIDE 0.9% 250ML 250 ML IV NR (09:30)
[2020-07-22 09:55] LABS: EOSINOPHILS % (MANUAL) 2 % (0-7); LYMPHOCYTES % (MANUAL) 7 % (19-48); NEUTROPHILS % (MANUAL) 91 % (40-74)
[2020-07-22 09:56] LABS: ANISOCYTOSIS MODERATE; HYPOCHROMASIA SLIGHT; PLATELET ESTIMATE ADEQUATE; PLATELET MORPHOLOGY COMMENT NORMAL; POIKILOCYTOSIS SLIGHT; POLYCHROMASIA FEW; RBC MORPHOLOGY COMMENT ABNORMAL
[2020-07-22] MEDS ORDERED: CALCIUM GLUCONATE 10% INJ 9.3 MEQ in SODIUM CHLORIDE 0.9% 100 ML 100 ML IV ONE (14:00)
[2020-07-22] MEDS ORDERED: SODIUM CHLORIDE 0.9% 250ML 250 ML IV ONE (14:00)
[2020-07-22] MEDS: SIMVASTATIN 20 MG TAB PO SCH (21:00)
[2020-07-22] MEDS: LOSARTAN POTASSIUM 25 MG TAB PO SCH (21:00)
[2020-07-22] MEDS: MIRTAZAPINE 15 MG TAB PO SCH (21:00)
[2020-07-22] MEDS: PSYLLIUM 6GM PACKET PO SCH (21:00)
[2020-07-23] VITALS (7 sets, daily range): BP systolic 106–170; BP diastolic 45–62
[2020-07-23] MEDS: METOCLOPRAMIDE HCL 10 MG TAB PO SCH ×4 (00:30→17:41)
[2020-07-23] MEDS: OXYCODONE/ACETAMINOPHEN 5-325 1 EACH TABLET PO SCH ×6 (02:30→19:47)
[2020-07-23] MEDS: HYDROMORPHONE 1MG/1ML INJ IV SCH ×8 (02:30→23:15)
[2020-07-23] MEDS: SODIUM CHLORIDE 0.9% 1000ML 1,000 ML IV SCH ×3 (04:00→20:00)
[2020-07-23 05:53] LABS: BASOPHILS % 0.2 % (0.0-1.0); EOSINOPHILS # (AUTO) 0.4 (0.0-0.4); HEMATOCRIT 29.2 % (34.2-44.1); HEMOGLOBIN 9.7 g/dL (12.0-16.0); LYMPHOCYTES # (AUTO) 0.7 (1.0-3.2); LYMPHOCYTES % 5.4 % (18.0-39.1); MEAN CORPUSCULAR HEMOGLOBIN 32.3 pg (28-32); MEAN CORPUSCULAR HGB CONC 33.2 g/dL (31-35); MEAN CORPUSCULAR VOLUME 97.3 fL (81-99); MONOCYTES # (AUTO) 0.1 (0.2-0.8); MONOCYTES % 0.6 % (4.4-11.3); NEUTROPHILS # (AUTO) 11.3 (2.1-6.9); NEUTROPHILS % 90.2 % (38.7-80.0); PLATELET COUNT 164 x10e3/uL (140-360); RED CELL DISTRIBUTION WIDTH 18.8 % (11.7-14.4)
[2020-07-23 06:25] LABS: ANION GAP 12.1 mmol/L (8-16); BLOOD UREA NITROGEN 8 mg/dL (7-26); BUN/CREATININE RATIO 17 (6-25); CALCIUM 7.6 mg/dL (8.4-10.2); CARBON DIOXIDE 19 mmol/L (22-29); CHLORIDE 106 mmol/L (98-107); CREATININE, SERUM 0.46 mg/dL (0.57-1.11); EST GLOMERULAR FILTRATION RATE > 60 ML/MIN (60-); GLUCOSE 124 mg/dL (74-118); POTASSIUM 4.1 mmol/L (3.5-5.1); SODIUM 133 mmol/L (136-145)
[2020-07-23] MEDS: PANTOPRAZOLE SOD 40 MG TABEC PO SCH ×3 (07:30→17:41)
[2020-07-23] MEDS: AMYLAS/CELLU/LIPAS/PROTEA/BILE 12,000 UNIT CAP PO SCH ×4 (08:00→17:41)
[2020-07-23] MEDS: UBIDECARENONE PO SCH ×2 (09:00→17:40)
[2020-07-23] MEDS: LIDOCAINE 4% PATCH TP SCH ×2 (09:00→23:31)
[2020-07-23] MEDS: CARVEDILOL 3.125 MG TAB PO SCH ×3 (09:00→17:41)
[2020-07-23] MEDS: DICYCLOMINE HCL 20 MG TAB PO SCH ×5 (09:00→21:05)
[2020-07-23] MEDS: SENNOSIDES 8.6 MG TAB PO SCH ×3 (09:00→17:41)
[2020-07-23] MEDS: POLYETHYLENE GLYCOL 3350 17 GM PACK PO SCH (09:00)
[2020-07-23] MEDS ORDERED: DIPHENHYDRAMINE HCL 25 MG CAP PO PRN (19:00)
[2020-07-23] MEDS: LOSARTAN POTASSIUM 25 MG TAB PO SCH (21:05)
[2020-07-23] MEDS: PSYLLIUM 6GM PACKET PO SCH (21:05)
[2020-07-23] MEDS: MIRTAZAPINE 15 MG TAB PO SCH (21:05)
[2020-07-23] MEDS: SIMVASTATIN 20 MG TAB PO SCH (21:05)
[2020-07-23] MEDS ORDERED: FENTANYL 12MCG/HR PATCH TD SCH (21:30)
[2020-07-23] MEDS ORDERED: PROMETHAZINE HCL (IM) 25 MG/ML VIAL IM PRN (23:15)
[2020-07-23] MEDS: ONDANSETRON HCL 4 MG ORAL DISINTEGRATING TAB PO PRN (23:31)
[2020-07-24] VITALS (7 sets, daily range): BP systolic 104–166; BP diastolic 47–78
[2020-07-24] MEDS: OXYCODONE/ACETAMINOPHEN 5-325 1 EACH TABLET PO SCH ×6 (00:15→21:10)
[2020-07-24] MEDS: METOCLOPRAMIDE HCL 10 MG TAB PO SCH ×4 (00:56→18:00)
[2020-07-24] MEDS: HYDROMORPHONE 1MG/1ML INJ IV SCH ×8 (02:30→23:30)
[2020-07-24] MEDS: SODIUM CHLORIDE 0.9% 1000ML 1,000 ML IV SCH (04:00)
[2020-07-24] MEDS: ONDANSETRON HCL 4 MG ORAL DISINTEGRATING TAB PO PRN (05:00)
[2020-07-24] MEDS: LIDOCAINE 4% PATCH TP SCH ×2 (09:00)
[2020-07-24] MEDS: POLYETHYLENE GLYCOL 3350 17 GM PACK PO SCH (09:00)
[2020-07-24] MEDS: AMYLAS/CELLU/LIPAS/PROTEA/BILE 12,000 UNIT CAP PO SCH ×3 (10:43→17:00)
[2020-07-24] MEDS: PANTOPRAZOLE SOD 40 MG TABEC PO SCH ×2 (10:43→16:30)
[2020-07-24] MEDS: DICYCLOMINE HCL 20 MG TAB PO SCH ×3 (10:44→20:35)
[2020-07-24] MEDS: CARVEDILOL 3.125 MG TAB PO SCH ×2 (10:44→17:00)
[2020-07-24] MEDS: SENNOSIDES 8.6 MG TAB PO SCH ×2 (10:44→17:00)
[2020-07-24] MEDS: UBIDECARENONE PO SCH ×2 (10:45→17:00)
[2020-07-24] MEDS ORDERED: CEFAZOLIN SOD 1 GM/NS 50ML 100 ML IV ONE (14:45)
[2020-07-24] MEDS: CEFTRIAXONE SOD 1 GM/NS 50 ML 50 ML IV SCH (15:00)
[2020-07-24 17:31] LABS: BILIRUBIN,URINE NEGATIVE (NEGATIVE); CLARITY,URINE SL CLOUDY (CLEAR); COLOR,URINE STRAW (YELLOW); KETONES,URINE NEGATIVE (NEGATIVE); LEUKOCYTE ESTERASE ,URINE TRACE (NEGATIVE); NITRITE,URINE NEGATIVE (NEGATIVE); PROTEIN,URINE DIPSTICK NEGATIVE (NEGATIVE); URINE UROBILINOGEN 1 mg/dL (0.2 - 1)
[2020-07-24 17:34] LABS: PROTHROMBIN TIME 13.7 seconds (11.9-14.5)
[2020-07-24 17:35] LABS: PARTIAL THROMBOPLASTIN TIME 35.4 seconds (23.8-35.5)
[2020-07-24 17:42] LABS: BACTERIA,URINE MODERATE /HPF; EPITHELIAL CELLS,URINE FEW /LPF; RENAL EPITHELIAL CELLS,URINE RARE; TRANSITIONAL EPI CELLS,URINE FEW; WBC,URINE (MAN) 0-5 /HPF (0-5)
[2020-07-24] MEDS: PSYLLIUM 6GM PACKET PO SCH (20:35)
[2020-07-24] MEDS: LOSARTAN POTASSIUM 25 MG TAB PO SCH (20:35)
[2020-07-24] MEDS: SIMVASTATIN 20 MG TAB PO SCH (20:35)
[2020-07-24] MEDS: MIRTAZAPINE 15 MG TAB PO SCH (20:35)
[2020-07-25] VITALS (7 sets, daily range): BP systolic 117–147; BP diastolic 54–74
[2020-07-25] MEDS ORDERED: SODIUM CHLORIDE 0.9% 1000ML 1,000 ML IV SCH
[2020-07-25] MEDS: METOCLOPRAMIDE HCL 10 MG TAB PO SCH ×4 (00:30→17:43)
[2020-07-25] MEDS: HYDROMORPHONE 1MG/1ML INJ IV SCH ×7 (02:30→21:57)
[2020-07-25] MEDS: CEFTRIAXONE SOD 1 GM/NS 50 ML 50 ML IV SCH ×2 (03:28→17:18)
[2020-07-25] MEDS: OXYCODONE/ACETAMINOPHEN 5-325 1 EACH TABLET PO SCH ×6 (04:30→21:15)
[2020-07-25 05:27] LABS: BASOPHILS % 0.7 % (0.0-1.0); EOSINOPHILS # (AUTO) 0.2 (0.0-0.4); EOSINOPHILS % 3.3 % (0.0-6.0); HEMATOCRIT 29.8 % (34.2-44.1); HEMOGLOBIN 9.8 g/dL (12.0-16.0); LYMPHOCYTES # (AUTO) 0.9 (1.0-3.2); MEAN CORPUSCULAR HEMOGLOBIN 32.9 pg (28-32); MEAN CORPUSCULAR HGB CONC 32.9 g/dL (31-35); MONOCYTES # (AUTO) 0.5 (0.2-0.8); MONOCYTES % 7.6 % (4.4-11.3); NEUTROPHILS # (AUTO) 4.5 (2.1-6.9); NEUTROPHILS % 74.1 % (38.7-80.0); PLATELET COUNT 117 x10e3/uL (140-360); RED BLOOD COUNT 2.98 x10e6/uL (3.6-5.1); RED CELL DISTRIBUTION WIDTH 17.2 % (11.7-14.4)
[2020-07-25 05:52] LABS: ALANINE AMINOTRANSFERASE 45 IU/L (0-55); ALBUMIN 2.1 g/dL (3.5-5.0); ALKALINE PHOSPHATASE 777 IU/L (40-150); ANION GAP 13.7 mmol/L (8-16); BLOOD UREA NITROGEN 10 mg/dL (7-26); BUN/CREATININE RATIO 22 (6-25); CALCIUM 7.4 mg/dL (8.4-10.2); CARBON DIOXIDE 18 mmol/L (22-29); CHLORIDE 107 mmol/L (98-107); CREATININE, SERUM 0.46 mg/dL (0.57-1.11); EST GLOMERULAR FILTRATION RATE > 60 ML/MIN (60-); GLUCOSE 136 mg/dL (74-118); POTASSIUM 4.7 mmol/L (3.5-5.1); SODIUM 134 mmol/L (136-145)
[2020-07-25] MEDS: PANTOPRAZOLE SOD 40 MG TABEC PO SCH ×2 (07:30→17:20)
[2020-07-25] MEDS: AMYLAS/CELLU/LIPAS/PROTEA/BILE 12,000 UNIT CAP PO SCH ×3 (08:00→17:21)
[2020-07-25] MEDS: CARVEDILOL 3.125 MG TAB PO SCH ×2 (08:32→17:20)
[2020-07-25] MEDS: UBIDECARENONE PO SCH ×2 (08:33→17:20)
[2020-07-25] MEDS: POLYETHYLENE GLYCOL 3350 17 GM PACK PO SCH (08:33)
[2020-07-25] MEDS: LIDOCAINE 4% PATCH TP SCH ×2 (08:33)
[2020-07-25] MEDS: SENNOSIDES 8.6 MG TAB PO SCH ×2 (08:33→17:21)
[2020-07-25] MEDS: DICYCLOMINE HCL 20 MG TAB PO SCH ×3 (08:33→21:15)
[2020-07-25] MEDS ORDERED: CEFAZOLIN SOD 1 GM/NS 50ML 100 ML IV ONE (11:30)
[2020-07-25] MEDS ORDERED: BUPIVACAINE HCL 0.5% INJ 30 ML VIAL INJ ONE (14:30)
[2020-07-25] MEDS ORDERED: ONDANSETRON HCL INJ 2MG/ML 2ML 2 MG/ML VIAL IV PRN (15:45)
[2020-07-25] MEDS ORDERED: HYDRALAZINE HCL 20 MG/ML VIAL ONE (16:04)
[2020-07-25] MEDS: SODIUM CHLORIDE 0.9% 1000ML 1,000 ML IV SCH (17:20)
[2020-07-25] MEDS: CEFAZOLIN SOD 1 GM/NS 50ML 50 ML IV SCH (21:15)
[2020-07-25] MEDS: LOSARTAN POTASSIUM 25 MG TAB PO SCH (21:15)
[2020-07-25] MEDS: MIRTAZAPINE 15 MG TAB PO SCH (21:15)
[2020-07-25] MEDS: SIMVASTATIN 20 MG TAB PO SCH (21:15)
[2020-07-25] MEDS: PSYLLIUM 6GM PACKET PO SCH (21:15)
[2020-07-25] MEDS ORDERED: ONDANSETRON HCL INJ 2MG/ML 2ML 2 MG/ML VIAL ONE (21:39)
[2020-07-25] MEDS ORDERED: DEXAMETHASONE SOD PHOS INJ 4 MG/ML VIAL ONE (21:39)
[2020-07-25] MEDS ORDERED: PROPOFOL IV EMULSION 10 MG/ML 20 ML VIAL ONE (21:39)
[2020-07-25] MEDS ORDERED: LIDOCAINE HCL 2% LOCAL INJ 5 ML SDV VIAL INJ ONE (21:39)
[2020-07-25] MEDS ORDERED: LABETALOL HCL 5 MG/ML 20ML VIAL ONE (21:39)
[2020-07-25] MEDS ORDERED: SEVOFLURANE INHAL SOLN 250 ML PEN BTL ONE (21:39)
[2020-07-25] MEDS ORDERED: FENTANYL CITRATE/PF 100MCG/2 ML INJ ONE (21:42)
[2020-07-26] VITALS: BP 145/68
[2020-07-26] MEDS: HYDROMORPHONE 1MG/1ML INJ IV SCH ×5 (00:55→11:43)
[2020-07-26] MEDS: METOCLOPRAMIDE HCL 10 MG TAB PO SCH ×3 (00:55→11:43)
[2020-07-26] MEDS: OXYCODONE/ACETAMINOPHEN 5-325 1 EACH TABLET PO SCH ×4 (01:37→12:02)
[2020-07-26 04:00] VITALS: BP 172/75
[2020-07-26] MEDS: CEFTRIAXONE SOD 1 GM/NS 50 ML 50 ML IV SCH (04:04)
[2020-07-26] MEDS: CEFAZOLIN SOD 1 GM/NS 50ML 50 ML IV SCH (05:10)
[2020-07-26 05:38] LABS: HEMATOCRIT 30.8 % (34.2-44.1); HEMOGLOBIN 10.6 g/dL (12.0-16.0); LYMPHOCYTES # (AUTO) 0.5 (1.0-3.2); LYMPHOCYTES % 10.5 % (18.0-39.1); MEAN CORPUSCULAR HEMOGLOBIN 34.4 pg (28-32); MEAN CORPUSCULAR HGB CONC 34.4 g/dL (31-35); MONOCYTES # (AUTO) 0.7 (0.2-0.8); NEUTROPHILS # (AUTO) 3.6 (2.1-6.9); NEUTROPHILS % 75.3 % (38.7-80.0); PLATELET COUNT 125 x10e3/uL (140-360); RED BLOOD COUNT 3.08 x10e6/uL (3.6-5.1); RED CELL DISTRIBUTION WIDTH 16.5 % (11.7-14.4)
[2020-07-26 06:10] LABS: ALANINE AMINOTRANSFERASE 40 IU/L (0-55); ALBUMIN 2.4 g/dL (3.5-5.0); ALKALINE PHOSPHATASE 916 IU/L (40-150); ANION GAP 15.5 mmol/L (8-16); BLOOD UREA NITROGEN 10 mg/dL (7-26); BUN/CREATININE RATIO 21 (6-25); CALCIUM 7.6 mg/dL (8.4-10.2); CARBON DIOXIDE 19 mmol/L (22-29); CHLORIDE 102 mmol/L (98-107); CREATININE, SERUM 0.48 mg/dL (0.57-1.11); EST GLOMERULAR FILTRATION RATE > 60 ML/MIN (60-); GLUCOSE 168 mg/dL (74-118); POTASSIUM 4.5 mmol/L (3.5-5.1); SODIUM 132 mmol/L (136-145)
[2020-07-26] MEDS: SODIUM CHLORIDE 0.9% 1000ML 1,000 ML IV SCH (07:44)
[2020-07-26] MEDS: PANTOPRAZOLE SOD 40 MG TABEC PO SCH (08:19)
[2020-07-26] MEDS: AMYLAS/CELLU/LIPAS/PROTEA/BILE 12,000 UNIT CAP PO SCH ×2 (08:19→11:43)
[2020-07-26] MEDS: CARVEDILOL 3.125 MG TAB PO SCH (08:20)
[2020-07-26] MEDS: LIDOCAINE 4% PATCH TP SCH ×2 (08:20)
[2020-07-26] MEDS: UBIDECARENONE PO SCH (08:20)
[2020-07-26] MEDS: SENNOSIDES 8.6 MG TAB PO SCH (08:20)
[2020-07-26] MEDS: DICYCLOMINE HCL 20 MG TAB PO SCH (08:20)
[2020-07-26] MEDS: POLYETHYLENE GLYCOL 3350 17 GM PACK PO SCH (08:20)
[2020-07-26 08:23] VITALS: BP 166/71
[2020-07-26 08:39] VITALS: BP 166/71
[2020-07-26 12:52] VITALS: BP 171/88
== END 2020-07-26 13:34 | disposition hospice, home (50) | DRG 516 ==
LOC: ER 18:00 → ERHOLD 23:29 → MED/SURG2 23:32 → MED/SURG 07-25 15:21
PROVIDERS: ADMIT Internal Medicine; ATTEND Internal Medicine
PROC: 30233N1 Transfusion of Nonautologous Red Blood Cells into Peripheral Vein, Percutaneous Approach (ICD-10-PCS; 2020-07-22)
PROC: 0QSF04Z Reposition Left Patella with Internal Fixation Device, Open Approach (ICD-10-PCS; principal; 2020-07-25 11:00)
DX: S82.002A Unspecified fracture of left patella, initial encounter for closed fracture (principal); S42.302A Unspecified fracture of shaft of humerus, left arm, initial encounter for closed fracture; R64 Cachexia; C25.9 Malignant neoplasm of pancreas, unspecified; N39.0 Urinary tract infection, site not specified; B95.2 Enterococcus as the cause of diseases classified elsewhere; D64.81 Anemia due to antineoplastic chemotherapy; D63.0 Anemia in neoplastic disease; W01.0XXA Fall on same level from slipping, tripping and stumbling without subsequent striking against object, initial encounter; Y93.89 Activity, other specified; Y92.238 Other place in hospital as the place of occurrence of the external cause; M17.11 Unilateral primary osteoarthritis, right knee; E78.5 Hyperlipidemia, unspecified; Z11.59 Encounter for screening for other viral diseases; Z66 Do not resuscitate; E83.51 Hypocalcemia
CPT/HCPCS: 36415; 71045; 76000; 80048; 80053; 81001; 82550; 82553; 84484; 85025; 85610; 85730; 86850; 86900; 86920; 87086; 87186; 93005; 93306; 93970; 96361; 97139; 99284; C1713; J0360; J0610; J0690; J0696; J1100; J1170; J1650; J2001; J2270; J2405; J2550; J3010; J7030; P9016; Q0162; U0002